=== PATIENT | male | born 1925 | race Caucasian/White ===

== ENCOUNTER 2016-11-19 16:24 | Inpatient (IN) | payer OTHER, BC ==
[~2016-11-19] VITALS: Ht 170.2 cm; Wt 79.6 kg
[~2016-11-19 16:24] MED LIST: ACET-1311 PO; ASPI-232 PO; ASTN; ATOR10TA88 PO; CALC500C3 PO; DPRCR15 EXT; FEXO1TAB46 PO; FLUT0.0529 NAE; LSX80 PO; MCRK20 PO; RANI150T3 PO; ZAFI10TA2 PO
[2016-11-19 18:30] VITALS: BP 107/64; PULSE 87; TEMP 36.4; O2SAT 97
[2016-11-19] MEDS ORDERED: ONDANSETRON INJ 2 MG/ML 2 ML VIAL IV PRN (19:30)
[2016-11-19] MEDS ORDERED: POTA20TA13 PO (19:31)
--- NOTE | 2016-11-19 19:54 | History and Physical ---
History & Physical Date & Time of Service: Nov 19, 2016 at 19:36 Chief Complaint: Increasing Lower Extremity Edema Primary Care Physician: Dr. Hardin History of Present Illness 89 year old male sent by Dr. Mills for direct admission for management of volume overload. Patient has history of nephrotic syndrome and CKD stage IV requiring intermittent admissions for IV Lasix with albumin for fluid removal. Patient reports increasing lower extremity edema and scrotal edema for the past few weeks. He notes a 9 pound weight gain last month. Last evening patient noted shortness of breath while laying down to sleep. He denies other shortness of breath, cough, or sputum production. No chest pain. Last week patient reports that while trying to get out of the bathtub, he missed the hand rail and suffered a fall. He fell onto his buttocks. He reports low back pain since then that has been improving with the use of Tylenol. He denies any radiation of the pain into his buttocks or legs. Denies any lower extremity weakness. No lightheadedness, dizziness, or loss of coconsciousness associated with the fall. He denies striking his head. Patient denies abdominal pain, nausea, vomiting, or diarrhea. No fever or chills. At the time of my exam, patient is resting seated in a chair next to his bed, no acute distress. Past Medical/Surgical History Medical Problems: (1) Chronic diastolic CHF (congestive heart failure) Permanent Comment: echo 01/2016 - Normal LV chamber size with moderate concentric LVH. Normal LV systolic function, EF 60-65%. No segmental left ventricular wall motion abnormalities are noted. Grade I diastolic dysfunction. Mild to moderate aortic regurgitation Status: Chronic (2) CKD (chronic kidney disease), stage IV Status: Chronic (3) GERD (gastroesophageal reflux disease) Status: Chronic (4) H/O prostate cancer Status: Chronic (5) H/O: CVA (cerebrovascular accident) Status: Chronic (6) HLD (hyperlipidemia) Status: Chronic (7) HTN (hypertension) Status: Chronic (8) Idiopathic pulmonary fibrosis Status: Chronic (9) Nephrotic syndrome Status: Chronic (10) S/P ORIF (open reduction internal fixation) fracture Permanent Comment: femur Status: Chronic Surgical Problems: (1) H/O hernia repair Status: Chronic (2) History of cataract surgery Status: Chronic (3) S/P T&A (status post tonsillectomy and adenoidectomy) Status: Chronic (4) S/P TURP Status: Chronic Family History Omit secondary to age Social History Smoking Status: Never Smoker Alcohol Use: none Housing status: assisted living Occupational Status: retired Immunizations History of Influenza Vaccine: Yes Influenza Vaccine Date: Sep 12, 2015 History of Pneumococcal: Yes Pneumococcal Date: Jan 19, 2013 Allergies Coded Allergies: Cat Dander (Verified Allergy, Mild, UNKNOWN, 06/14/15) Cephalexin (Verified Allergy, Mild, ASTHMATIC, 06/14/15) Pseudoephedrine (Verified Allergy, Mild, UNKNOWN, 06/14/15) Phenylpropanolamine (Verified Allergy, Unknown, ., 06/05/16) Home Medications Scheduled Aspirin (Aspir-81), 1 TAB PO DAILY Atorvastatin (Lipitor), 1 TAB PO DAILY Calcium Carbonate (Tums), 2,000 MG PO BID Fexofenadine Hcl (Pavithra), 180 MG PO DAILY Furosemide (Furosemide), 120 MG PO TID Potassium Chloride Microencaps (Potassium Chloride Er), 30 MEQ PO BID Ranitidine Hcl (Zantac), 1 TAB PO BID Zafirlukast (Zafirlukast), 10 MG PO BID Scheduled PRN Acetaminophen (Tylenol), 650 MG PO BID PRN for Pain or Fever Review of Systems 10 point review of systems was completed with the pertinent positives and negatives noted per the HPI Physical Exam Vital Signs Date Time Temp Pulse Resp B/P Pulse Ox O2 Delivery O2 Flow Rate FiO2 11/19/16 18:30 36.4 87 16 107/64 97 Room Air 11/19/16 18:30 97 Room Air General Appearance: no apparent distress Head: normocephalic Eyes: normal inspection ENT: hearing grossly normal Neck: supple, no JVD Respiratory/Chest: no respiratory distress, + crackles (BL bases) Cardiovascular: regular rate, rhythm, + pertinent finding (+3 pitting edema BLLE) Abdomen/GI: normal bowel sounds, non tender, soft Genitourinary - Male: + pertinent finding (scrotal edema) Back: + pertinent finding (mid lumbar pain with palpation) Extremities/Musculoskelatal: normal inspection, no calf tenderness Neurologic/Psych: no motor/sensory deficits, alert, normal mood/affect, oriented x 3 Skin: normal color, warm/dry Diagnostics Laboratory Results Results Past 24 Hours Test 11/19/16 19:25 Range/Units Impression Assessment and Plan VOLUME OVERLOAD IN THE SETTING OF NEPHROTIC SYNDROME AND CKD STAGE IV - admitted to med/surg - will obtain CBC and PRP - baseline creat runs in the low 1's - per nephrology will order Lasix 80mg IV TID with Albumin (patient is on Lasix 120mg PO TID at home) - continue home dose of potassium replacement however may need more due to aggressive diuresis - daily weights, I/Os, low Na+ and renal diet, fluid restriction as per home - nephro consult, input appreciated LOW BACK PAIN, MECHANICAL FALL - check lumbar spine XR - PT/OT HX CVA - continue ASA and statin GERD - continue H2 magali DVT PROPHYLAXIS - SQ Heparin CODE STATUS - Patient is a full code as per my discussion with him. DISPO - In my clinical judgment this beneficiary meets acute admission criteria, established by [facility], that includes being hospitalized through two midnights. ADDENDUM: This is a 89 year old male with PMH of nephrotic syndrome; sent over by Dr. Mills due to progressive worsening lower extremity edema. Also to note, he had a fall at the nursing facility with bruising on his lower back; states the pain is there with movement. PE: +3-4 pitting edema b/l LE up to upper thigh +bruising on lumbar area, with some muscle spasms Plan: as per nephro, IV Lasix 80mg TID with albumin I's and O's and fluid restriction Lumbar X-ray and Tylenol for the lower back pain VTE Prophylaxis VTE Risk Assessment Done? Y/N: Yes Risk Level: Moderate
[2016-11-19 20:39] LABS: HEMATOCRIT 32.4 % (42-52); MEAN CORPUSCULAR HEMOGLOBIN 29.8 pg (25-34); MEAN CORPUSCULAR HGB CONC 32.7 g/dl (32-36); MEAN PLATELET VOLUME 9.8 fL (7.4-10.4); PLATELET COUNT 179 K/uL (130-400); RED BLOOD COUNT 3.56 M/uL (4.7-6.1); WHITE BLOOD COUNT 8.35 K/uL (4.8-10.8)
[2016-11-19 20:49] LABS: PROTHROMBIN TIME (PATIENT) 10.9 SECONDS (9.0-12.0)
[2016-11-19 20:56] LABS: BLOOD UREA NITROGEN 54 mg/dl (7-18); BUN/CREATININE RATIO 22.6 (10-20); CALCIUM 8.2 mg/dl (8.5-10.1); CARBON DIOXIDE 32 mmol/L (21-32); CHLORIDE 102 mmol/L (98-107); GLUCOSE 113 mg/dl (70-99); MAGNESIUM 2.6 mg/dl (1.8-2.4); POTASSIUM 4.1 mmol/L (3.5-5.1); SODIUM 144 mmol/L (136-145)
[2016-11-19] MEDS: ZAFIRLUKAST TAB 20 MG TAB PO SCH (22:35)
[2016-11-19] MEDS: POTASSIUM CHLORIDE 20 MEQ TABCR PO SCH (22:36)
[2016-11-19] MEDS: CALCIUM CARBONATE 500 MG CHEWABLE PO SCH (22:36)
[2016-11-19] MEDS: RANITIDINE HCL 150 MG TAB PO SCH (22:36)
[2016-11-20] VITALS (10 sets, daily range): BP systolic 93–118; BP diastolic 55–76; PULSE 85–96; TEMP 36.5–36.9; O2SAT 95–100; Ht 170.2 cm; Wt 79.6 kg
[2016-11-20] MEDS: ALBUMIN 25% 50 ML with FUROSEMIDE INJ 80 MG IV SCH ×8 (00:17→19:32)
[2016-11-20] MEDS: HEPARIN SOD 5000 UNIT/0.5 ML CARP SQ SCH ×3 (01:19→20:31)
[2016-11-20] MEDS: ACETAMINOPHEN 325 MG TAB PO PRN ×5 (01:52→20:36)
[2016-11-20 06:13] LABS: HEMATOCRIT 32.5 % (42-52); MEAN CELL VOLUME 91.8 fL (80-100); MEAN CORPUSCULAR HEMOGLOBIN 30.5 pg (25-34); MEAN CORPUSCULAR HGB CONC 33.2 g/dl (32-36); MEAN PLATELET VOLUME 9.9 fL (7.4-10.4); PLATELET COUNT 182 K/uL (130-400); RED BLOOD COUNT 3.54 M/uL (4.7-6.1); WHITE BLOOD COUNT 10.22 K/uL (4.8-10.8)
[2016-11-20 06:45] LABS: BUN/CREATININE RATIO 22.6 (10-20); CALCIUM 8.3 mg/dl (8.5-10.1); CREATININE 2.3 mg/dl (0.60-1.40); POTASSIUM 3.7 mmol/L (3.5-5.1)
[2016-11-20] MEDS: ZAFIRLUKAST TAB 20 MG TAB PO SCH ×3 (07:42→20:39)
[2016-11-20] MEDS: POTASSIUM CHLORIDE 20 MEQ TABCR PO SCH ×3 (07:43→20:38)
[2016-11-20] MEDS ORDERED: ASPIRIN 81 MG ECTAB PO SCH (08:00)
[2016-11-20] MEDS ORDERED: ATORVASTATIN 10 MG TAB PO SCH (08:00)
[2016-11-20] MEDS ORDERED: FEXOFENADINE HCL 180 MG TAB PO SCH (08:00)
[2016-11-20] MEDS: CALCIUM CARBONATE 500 MG CHEWABLE PO SCH ×3 (08:05→20:37)
[2016-11-20] MEDS: RANITIDINE HCL 150 MG TAB PO SCH ×3 (08:05→20:37)
[2016-11-20] MEDS ORDERED: NURSING DECISION MEDICATION ORDER SCH (08:30)
--- NOTE | 2016-11-20 09:25 | NEPHROLOGY CONSULTATION ---
DATE OF CONSULTATION: 11/20/2016 ATTENDING OF RECORD: Dr. Berg. REASON FOR CONSULTATION: Low back pain and worsening edema. HISTORY OF PRESENT ILLNESS: This is an 89-year-old male with underlying nephrotic syndrome of unclear etiology, who has significant proteinuria, has CKD stage IV with baseline creatinine in the low 2s, who comes in periodically for Lasix and albumin to try to help improve edema. As an outpatient, when we added metolazone, the patient's potassium levels became quite low, requiring inpatient admission. The patient has had 3 falls over the past several months, the last fall being about a week ago. Since that last fall, the patient has had significant low back pain. The patient also has not been walking as well given his low back pain and lower extremity swelling and is slowing down and is getting majority of his food sent to him in his room instead of walking to the cafeteria. The patient currently resides in a half-way in [place]. 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 ROS: +fatigue, +edema in legs and scrotal swelling, +low back pain, +ambulatory dysfunction, no headaches, no chest pain, no sob, no rash, no itching, no anorexia, denies fevers or chills, no blurry vision. all other review of systems otherwise negative. PAST MEDICAL HISTORY: Diastolic heart failure, idiopathic pulmonary fibrosis with underlying basilar rales at baseline, hypertension, hyperlipidemia, history of stroke in the past, history of prostate cancer, CKD stage IV, nephrotic syndrome. PAST SURGICAL HISTORY: TURP, hernia repair, cataract surgery, tonsillectomy, femur fracture repair. FAMILY HISTORY: No renal disease in family. SOCIAL HISTORY: No smoking, no alcohol, no drugs. Currently resides in a half-way in [place] called [facility]. HOME MEDICATIONS: Significant for Lasix 120 mg p.o. t.i.d. as well as potassium 30 mEq p.o. b.i.d. CURRENT MEDICATIONS: Aspirin 81 mg daily, Lipitor 10 mg daily, Pavithra 180 mg daily, heparin 5000 units subcu q. 12, Lasix 80 IV t.i.d. with albumin, Tums 2 grams p.o. b.i.d., potassium 30 mEq p.o. b.i.d., Zantac 150 mg p.o. b.i.d., Accolate 10 mg p.o. b.i.d. PHYSICAL EXAMINATION: VITAL SIGNS: Temperature 36.8, pulse 91, respiratory rate 16, blood pressure 102/63, satting 95% on room air. GENERAL: Awake, alert, oriented x3. EYES: No scleral icterus. ENT: Moist mucous membranes. NECK: Supple. PULMONARY: Basilar rales. CARDIAC: Distant heart sounds, regular rate. ABDOMEN: Bowel sounds positive, soft, nontender. EXTREMITIES: +2 pitting edema lower extremities as well as scrotal edema. DERMATOLOGIC: No rash or ulcers noted. LABORATORY DATA: White count 10.22, H\T\H 10.8 and 32.5, platelet count 182. Sodium level is 145, potassium is 3.7, chloride is 104, bicarbonate is 31, BUN is 52, creatinine is 2.3, glucose is 97, calcium is 8.3, mag is 2.6. INR is 1. IMPRESSION AND PLAN: 1. Chronic kidney disease stage IV in the setting of nephrotic syndrome with blood pressures in the low 100s, trying to balance removing fluid with preserving kidney function and maintaining adequate blood pressure while following electrolytes closely. Currently on Lasix 80 mg IV t.i.d. with albumin. We will try to remove fluid while still preserving kidney function and continue to follow the electrolytes, currently on 30 mEq p.o. b.i.d. of potassium which may need to be adjusted. Magnesium levels have been chronically elevated in the 2.5-2.8 range despite not receiving any mag supplementation. Overall, poor prognosis given his constellation of findings, but hopefully we will be able to remove 5-10 pounds of fluid while still preserving kidney function and then discharge back to [facility] as a goal. 2. Low back pain. The patient did have a fall about a week ago, and since the fall, has had low back pain and currently going for films this morning. If we are able to control his pain better, that may improve his quality of life and help with mobility which is important in the preservation of his life. Hopefully, we can improve mobility by improving the leg swelling and controlling the pain of his lower extremities, although difficult and problematic given his chronically low blood pressures, worsening kidney function, advanced age with underlying idiopathic pulmonary fibrosis as well as diastolic heart failure. AKSHAT
--- NOTE | 2016-11-20 09:59 | DIAGNOSTIC IMAGING REPORT ---
LUMBAR SPINE 5 VIEWS HISTORY: fall, low back pain COMPARISON: None. FINDINGS: There is no fracture. No subluxation. Mild levoscoliosis. Degenerative changes within the sacroiliac joints and hips. Mild anterior wedging within the T12 vertebral body. Lumbar spine vertebral bodies are maintained. Mild to moderate disc space narrowing at L2-L3, L3-L4, L4-L5, and L5-S1. IMPRESSION: 1. No acute fracture or subluxation within the lumbar spine. 2. Mild anterior wedging within the T12 vertebral body. This likely represents an age-indeterminate mild compression deformity. 3. Moderate degenerative disc disease within the lumbar spine as described above. 4. Levoscoliosis. Electronically signed by: Michi Silverio M.D. 11/20/2016 9:57 AM
--- NOTE | 2016-11-20 10:03 | DIAGNOSTIC IMAGING REPORT ---
CHEST 2 VIEWS ROUTINE CLINICAL HISTORY: Volume overload. COMPARISON STUDY: Chest radiograph June 11, 2016. FINDINGS: There is no pneumothorax. Cardiac size is normal. There may be trace bilateral pleural effusions. Diffuse interstitial thickening persists. There may be lower lobe volume loss. This is chronic. No consolidation is identified. IMPRESSION: 1. Diffuse interstitial thickening suggestive of interstitial lung disease. Mild superimposed pulmonary edema would be difficult to exclude although there is no evidence for overt pulmonary edema. 2. Suspected trace bilateral pleural effusions. Electronically signed by: Russell Mondragon M.D. 11/20/2016 10:01 AM
[2016-11-20] MEDS: ASPIRIN 81 MG ECTAB PO SCH (12:22)
[2016-11-20] MEDS: ATORVASTATIN 10 MG TAB PO SCH (12:22)
[2016-11-20] MEDS: FEXOFENADINE HCL 180 MG TAB PO SCH (12:22)
--- NOTE | 2016-11-20 22:18 | Progress Note ---
Medicine Progress Note Date & Time of Visit: Nov 20, 2016 at 22:08. Subjective Pt was seen and examined lying in bed with no acute distress pt said that he is having a lot of pain in his lower back and the sacral area pt said that pain is worst when he tries to sit denies any chest pain, palpitation and sob Objective Last 8 Hrs Date Time Temp Pulse Resp B/P Pulse Ox O2 Delivery O2 Flow Rate FiO2 11/20/16 20:28 36.9 87 18 118/64 98 Room Air 11/20/16 19:36 36.8 89 18 99/62 97 Room Air 11/20/16 16:00 Room Air 11/20/16 15:57 36.8 94 18 110/68 100 Room Air 11/20/16 14:46 36.7 85 18 93/55 11/20/16 14:20 36.7 86 18 101/58 96 Physical Exam: General- No acute distress Head- atraumatic Eyes- PERRL, EOMI ENT- oropharynx clear Neck- supple, no JVD Lungs- clear to auscultation and percussion Heart- regular rhythm; no murmur Abdomen- normal bowel sounds, soft Extremities- +3 edema, no calf tenderness Neuro- alert, oriented x 3; PERRL, EOMI Laboratory Results: Last 24 Hours Test 11/20/16 05:26 White Blood Count 10.22 K/uL Red Blood Count 3.54 M/uL Hemoglobin 10.8 g/dL Hematocrit 32.5 % Mean Corpuscular Volume 91.8 fL Mean Corpuscular Hemoglobin 30.5 pg Mean Corpuscular Hemoglobin Concent 33.2 g/dl RDW Standard Deviation 49.8 fL RDW Coefficient of Variation 14.6 % Platelet Count 182 K/uL Mean Platelet Volume 9.9 fL Sodium Level 145 mmol/L Potassium Level 3.7 mmol/L Chloride Level 104 mmol/L Carbon Dioxide Level 31 mmol/L Anion Gap 10.0 mmol/L Blood Urea Nitrogen 52 mg/dl Creatinine 2.30 mg/dl Est Creatinine Clear Calc Drug Dose 22.5 ml/min Estimated GFR () 28.1 Estimated GFR (Non- 24.3 BUN/Creatinine Ratio 22.6 Random Glucose 97 mg/dl Calcium Level 8.3 mg/dl Assessment & Plan VOLUME OVERLOAD IN THE SETTING OF NEPHROTIC SYNDROME AND CKD STAGE IV - Continue Lasix 80mg IV TID - Will monitor electrolytes and creatine - daily weights, I/Os, low Na+ and renal diet, fluid restriction as per home LOW BACK PAIN, MECHANICAL FALL - lumbar spine XR showed no fracture. Moderate degenerative disc disease - Will start on a low dose of baclofen for muscle relaxant - continue tylenol for the pain, if not improved may consider to add tramadol - Continue PT/OT HX CVA - continue ASA and statin GERD - continue H2 magali DVT PROPHYLAXIS - SQ Heparin CODE STATUS - Full code Consultants: nephro Current Inpatient Medications: Current Inpatient Medications Medications (Trade) Dose Ordered Sig/Filiberto Route Start Time Stop Time Status Last Admin Dose Admin Acetaminophen (Tylenol Tab) 650 mg Q4H PRN PO 11/19/16 19:30 12/19/16 19:29 11/20/16 20:36 650 MG Ondansetron HCl (Zofran Inj) 4 mg Q6H PRN IV 11/19/16 19:30 12/19/16 19:29 Heparin Sodium (Porcine) 5000 unit 5,000 unit Q12 SQ 11/19/16 23:00 12/19/16 22:59 11/20/16 20:31 5,000 UNIT Furosemide/ Albumin Human (Lasix Inj/ Albumin 25%) 58 ml @ 60 mls/hr TID IV 11/19/16 20:00 11/22/16 19:59 11/20/16 19:32 60 MLS/HR Calcium Carbonate (Tums Chew Tab) 2,000 mg BID PO 11/19/16 20:00 12/19/16 19:59 11/20/16 20:37 2,000 MG Potassium Chloride (Klor-Con Tab) 30 meq BID PO 11/19/16 20:00 12/19/16 19:59 11/20/16 20:38 30 MEQ Ranitidine HCl (zANTac TAB) 150 mg BID PO 11/19/16 20:00 12/19/16 19:59 11/20/16 20:37 150 MG Zafirlukast (Accolate Tab) 10 mg BID PO 11/19/16 20:00 12/19/16 19:59 11/20/16 20:39 10 MG Aspirin (Ecotrin Tab) 81 mg 1200 PO 11/20/16 12:00 12/20/16 11:59 11/20/16 12:22 81 MG Atorvastatin Calcium (Lipitor Tab) 10 mg 1200 PO 11/20/16 12:00 12/20/16 11:59 11/20/16 12:22 10 MG Fexofenadine HCl (Pavithra Tab) 180 mg 1200 PO 11/20/16 12:00 12/20/16 11:59 11/20/16 12:22 180 MG Calcium Carbonate (Tums Chew Tab) 2,000 mg BIDM PO 11/20/16 17:00 12/20/16 16:59 11/20/16 16:00 2,000 MG Potassium Chloride (Klor-Con Tab) 30 meq BIDM PO 11/20/16 17:00 12/20/16 16:59 11/20/16 16:00 30 MEQ Ranitidine HCl (zANTac TAB) 150 mg BIDM PO 11/20/16 17:00 12/20/16 16:59 11/20/16 16:01 150 MG Zafirlukast (Accolate Tab) 10 mg BIDM PO 11/20/16 17:00 12/20/16 16:59 11/20/16 16:01 10 MG
[2016-11-20] MEDS: BACLOFEN 10 MG TAB PO ONE ×2 (22:21→23:52)
[2016-11-21] VITALS (9 sets, daily range): BP systolic 90–115; BP diastolic 58–68; PULSE 80–100; TEMP 36.3–36.6; O2SAT 96–98
[2016-11-21] MEDS: ACETAMINOPHEN 325 MG TAB PO PRN ×5 (00:09→20:46)
[2016-11-21 06:08] LABS: MEAN CELL VOLUME 91.7 fL (80-100); MEAN CORPUSCULAR HEMOGLOBIN 30.3 pg (25-34); MEAN PLATELET VOLUME 9.9 fL (7.4-10.4); PLATELET COUNT 178 K/uL (130-400); RED BLOOD COUNT 3.27 M/uL (4.7-6.1); WHITE BLOOD COUNT 7.66 K/uL (4.8-10.8)
[2016-11-21 06:50] LABS: BUN/CREATININE RATIO 22.6 (10-20); CALCIUM 8.3 mg/dl (8.5-10.1); CREATININE 2.1 mg/dl (0.60-1.40); MAGNESIUM 2.5 mg/dl (1.8-2.4); POTASSIUM 3.4 mmol/L (3.5-5.1)
[2016-11-21 06:51] LABS: PHOSPHORUS 3.1 mg/dl (2.5-4.9)
[2016-11-21] MEDS ORDERED: POTASSIUM CHLORIDE 20 MEQ TABCR PO ONE (07:45)
[2016-11-21] MEDS: POTASSIUM CHLORIDE 20 MEQ TABCR PO SCH ×3 (08:39→17:02)
[2016-11-21] MEDS: ZAFIRLUKAST TAB 20 MG TAB PO SCH ×3 (08:40→17:01)
[2016-11-21] MEDS: BACLOFEN 10 MG TAB PO SCH ×2 (08:41→20:46)
[2016-11-21] MEDS: CALCIUM CARBONATE 500 MG CHEWABLE PO SCH ×3 (08:41→17:03)
[2016-11-21] MEDS: RANITIDINE HCL 150 MG TAB PO SCH ×3 (08:41→17:02)
[2016-11-21] MEDS: ALBUMIN 25% 50 ML with FUROSEMIDE INJ 80 MG IV SCH ×6 (08:45→20:48)
[2016-11-21] MEDS: HEPARIN SOD 5000 UNIT/0.5 ML CARP SQ SCH ×2 (08:49→20:50)
[2016-11-21] MEDS: FEXOFENADINE HCL 180 MG TAB PO SCH (12:06)
[2016-11-21] MEDS: ATORVASTATIN 10 MG TAB PO SCH (12:06)
[2016-11-21] MEDS: ASPIRIN 81 MG ECTAB PO SCH (12:07)
--- NOTE | 2016-11-21 19:24 | Progress Note ---
Medicine Progress Note Date & Time of Visit: Nov 21, 2016 at 19:19. Subjective Pt was seen and examined Sitting in bed with no distress Pt said that he feel little better Pt said that he feels a little disappointed today because his weight did not drop Pt said that her sacral pain is better denies any chest pain, palpitation, dizziness and sob Objective Last 8 Hrs Date Time Temp Pulse Resp B/P Pulse Ox O2 Delivery O2 Flow Rate FiO2 11/21/16 16:42 98 Room Air 11/21/16 16:25 36.6 82 18 97/59 98 Room Air 11/21/16 15:16 36.6 82 18 95/59 11/21/16 14:55 36.3 82 18 90/58 Physical Exam: General- No acute distress Head- atraumatic Eyes- PERRL, EOMI ENT- oropharynx clear Neck- supple, no JVD Lungs- clear to auscultation and percussion Heart- regular rhythm; no murmur Abdomen- normal bowel sounds, soft Extremities- +3 edema, no calf tenderness Neuro- alert, oriented x 3; PERRL, EOMI Laboratory Results: Last 24 Hours Test 11/21/16 05:28 White Blood Count 7.66 K/uL Red Blood Count 3.27 M/uL Hemoglobin 9.9 g/dL Hematocrit 30.0 % Mean Corpuscular Volume 91.7 fL Mean Corpuscular Hemoglobin 30.3 pg Mean Corpuscular Hemoglobin Concent 33.0 g/dl RDW Standard Deviation 49.3 fL RDW Coefficient of Variation 14.6 % Platelet Count 178 K/uL Mean Platelet Volume 9.9 fL Sodium Level 145 mmol/L Potassium Level 3.4 mmol/L Chloride Level 104 mmol/L Carbon Dioxide Level 32 mmol/L Anion Gap 9.0 mmol/L Blood Urea Nitrogen 48 mg/dl Creatinine 2.10 mg/dl Est Creatinine Clear Calc Drug Dose 24.7 ml/min Estimated GFR () 31.4 Estimated GFR (Non- 27.1 BUN/Creatinine Ratio 22.6 Random Glucose 88 mg/dl Calcium Level 8.3 mg/dl Phosphorus Level 3.1 mg/dl Magnesium Level 2.5 mg/dl Assessment & Plan VOLUME OVERLOAD IN THE SETTING OF NEPHROTIC SYNDROME AND CKD STAGE IV - Continue Lasix 80mg IV TID - Will monitor electrolytes and creatine - Continue strict I/O LOW BACK PAIN, MECHANICAL FALL - lumbar spine XR showed no fracture. Moderate degenerative disc disease - continue tylenol for the pain, if not improved may consider to add tramadol - Continue PT/OT - baclofen low dose was started for muscle relaxant - Continue baclofen and can increase to 10mg HX CVA - continue ASA and statin GERD - continue H2 magali DVT PROPHYLAXIS - SQ Heparin CODE STATUS - Full code Consultants: nephro Current Inpatient Medications: Current Inpatient Medications Medications (Trade) Dose Ordered Sig/Filiberto Route Start Time Stop Time Status Last Admin Dose Admin Acetaminophen (Tylenol Tab) 650 mg Q4H PRN PO 11/19/16 19:30 12/19/16 19:29 11/21/16 17:00 650 MG Ondansetron HCl (Zofran Inj) 4 mg Q6H PRN IV 11/19/16 19:30 12/19/16 19:29 Heparin Sodium (Porcine) 5000 unit 5,000 unit Q12 SQ 11/19/16 23:00 12/19/16 22:59 11/21/16 08:49 5,000 UNIT Furosemide/ Albumin Human (Lasix Inj/ Albumin 25%) 58 ml @ 60 mls/hr TID IV 11/19/16 20:00 11/22/16 19:59 11/21/16 14:47 60 MLS/HR Aspirin (Ecotrin Tab) 81 mg 1200 PO 11/20/16 12:00 12/20/16 11:59 11/21/16 12:07 81 MG Atorvastatin Calcium (Lipitor Tab) 10 mg 1200 PO 11/20/16 12:00 12/20/16 11:59 11/21/16 12:06 10 MG Fexofenadine HCl (Pavithra Tab) 180 mg 1200 PO 11/20/16 12:00 12/20/16 11:59 11/21/16 12:06 180 MG Calcium Carbonate (Tums Chew Tab) 2,000 mg BIDM PO 11/20/16 17:00 12/20/16 16:59 11/21/16 17:03 2,000 MG Potassium Chloride (Klor-Con Tab) 30 meq BIDM PO 11/20/16 17:00 12/20/16 16:59 11/21/16 17:02 30 MEQ Ranitidine HCl (zANTac TAB) 150 mg BIDM PO 11/20/16 17:00 12/20/16 16:59 11/21/16 17:02 150 MG Zafirlukast (Accolate Tab) 10 mg BIDM PO 11/20/16 17:00 12/20/16 16:59 11/21/16 17:01 10 MG Baclofen (Lioresal Tab) 5 mg BID PO 11/21/16 08:00 12/21/16 07:59 11/21/16 08:41 5 MG
[2016-11-22] VITALS (8 sets, daily range): BP systolic 90–111; BP diastolic 56–71; PULSE 80–98; TEMP 36.1–36.6; O2SAT 94–97
[2016-11-22] MEDS: ACETAMINOPHEN 325 MG TAB PO PRN ×6 (01:54→22:52)
[2016-11-22 06:31] LABS: HEMATOCRIT 31.6 % (42-52); MEAN CELL VOLUME 90.8 fL (80-100); MEAN CORPUSCULAR HEMOGLOBIN 30.5 pg (25-34); MEAN CORPUSCULAR HGB CONC 33.5 g/dl (32-36); PLATELET COUNT 200 K/uL (130-400); RED BLOOD COUNT 3.48 M/uL (4.7-6.1); WHITE BLOOD COUNT 10.49 K/uL (4.8-10.8)
[2016-11-22 06:59] LABS: BUN/CREATININE RATIO 24.5 (10-20); CALCIUM 8.7 mg/dl (8.5-10.1); CREATININE 2.3 mg/dl (0.60-1.40); POTASSIUM 3.8 mmol/L (3.5-5.1)
--- NOTE | 2016-11-22 07:29 | Nephrology Progress Note ---
Nephrology Progress Note Date of Service: Nov 22, 2016. Subjective 89 yo male with worsening low back pain after a fall a week ago with underlying ckd stage 4 with nephrotic syndrome of unclear etiology who was being managed conservatively as an outpatient. on lasix 120mg po bid as outpt and now on albumin with 80 of lasix iv tid. pt feels he is diuresing nicely. continues to have back pain of 3/10. Objective Date Time Temp Pulse Resp B/P Pulse Ox O2 Delivery O2 Flow Rate FiO2 11/22/16 00:00 Room Air 11/21/16 21:08 36.6 80 16 97/59 98 Room Air 11/21/16 16:42 98 Room Air 11/21/16 16:25 36.6 82 18 97/59 98 Room Air 11/21/16 15:16 36.6 82 18 95/59 11/21/16 14:55 36.3 82 18 90/58 11/21/16 10:14 36.4 80 16 98/60 11/21/16 09:14 36.6 98 16 105/66 11/21/16 09:00 Room Air 11/21/16 08:46 36.3 100 20 115/68 96 Room Air Physical Exam: General-aaox3 Eyes-no scleral icterus ENT-mmm Neck-supple Lungs-basilar rales Heart-rrr Abdomen-bs+ s/nt/nd Extremities-+2 to 3 edema Neuro-nonfocal Current Inpatient Medications Medications (Trade) Dose Ordered Sig/Filiberto Route Start Time Stop Time Status Last Admin Dose Admin Acetaminophen (Tylenol Tab) 650 mg Q4H PRN PO 11/19/16 19:30 12/19/16 19:29 11/22/16 05:55 650 MG Ondansetron HCl (Zofran Inj) 4 mg Q6H PRN IV 11/19/16 19:30 12/19/16 19:29 Heparin Sodium (Porcine) 5000 unit 5,000 unit Q12 SQ 11/19/16 23:00 12/19/16 22:59 11/21/16 20:50 5,000 UNIT Furosemide/ Albumin Human (Lasix Inj/ Albumin 25%) 58 ml @ 60 mls/hr TID IV 11/19/16 20:00 11/22/16 19:59 11/21/16 20:48 60 MLS/HR Aspirin (Ecotrin Tab) 81 mg 1200 PO 11/20/16 12:00 12/20/16 11:59 11/21/16 12:07 81 MG Atorvastatin Calcium (Lipitor Tab) 10 mg 1200 PO 11/20/16 12:00 12/20/16 11:59 11/21/16 12:06 10 MG Fexofenadine HCl (Pavithra Tab) 180 mg 1200 PO 11/20/16 12:00 12/20/16 11:59 11/21/16 12:06 180 MG Calcium Carbonate (Tums Chew Tab) 2,000 mg BIDM PO 11/20/16 17:00 12/20/16 16:59 11/21/16 17:03 2,000 MG Potassium Chloride (Klor-Con Tab) 30 meq BIDM PO 11/20/16 17:00 12/20/16 16:59 11/21/16 17:02 30 MEQ Ranitidine HCl (zANTac TAB) 150 mg BIDM PO 11/20/16 17:00 12/20/16 16:59 11/21/16 17:02 150 MG Zafirlukast (Accolate Tab) 10 mg BIDM PO 11/20/16 17:00 12/20/16 16:59 11/21/16 17:01 10 MG Baclofen (Lioresal Tab) 5 mg BID PO 11/21/16 08:00 12/21/16 07:59 11/21/16 20:46 5 MG Last 24 Hours Test 11/22/16 06:00 White Blood Count 10.49 K/uL Red Blood Count 3.48 M/uL Hemoglobin 10.6 g/dL Hematocrit 31.6 % Mean Corpuscular Volume 90.8 fL Mean Corpuscular Hemoglobin 30.5 pg Mean Corpuscular Hemoglobin Concent 33.5 g/dl RDW Standard Deviation 48.5 fL RDW Coefficient of Variation 14.7 % Platelet Count 200 K/uL Mean Platelet Volume 10.0 fL Sodium Level 144 mmol/L Potassium Level 3.8 mmol/L Chloride Level 104 mmol/L Carbon Dioxide Level 32 mmol/L Anion Gap 8.0 mmol/L Blood Urea Nitrogen 56 mg/dl Creatinine 2.30 mg/dl Est Creatinine Clear Calc Drug Dose 22.5 ml/min Estimated GFR () 28.1 Estimated GFR (Non- 24.3 BUN/Creatinine Ratio 24.5 Random Glucose 90 mg/dl Calcium Level 8.7 mg/dl Assessment & Plan ckd stage 4 with baseline creatinine in the low 2s with significant nephrotic syndrome and third spacing of fluids who is on albumin and lasix to help try to preserve kidney function while mobilizing extra fluid. creatinine 2.3 which is stable. hypokalemia-k of 3.8 and on k supplement prn.
[2016-11-22] MEDS: BACLOFEN 10 MG TAB PO SCH ×2 (08:47→20:15)
[2016-11-22] MEDS: ALBUMIN 25% 50 ML with FUROSEMIDE INJ 80 MG IV SCH ×6 (08:47→20:15)
[2016-11-22] MEDS: POTASSIUM CHLORIDE 20 MEQ TABCR PO SCH ×2 (08:48→17:26)
[2016-11-22] MEDS: CALCIUM CARBONATE 500 MG CHEWABLE PO SCH ×2 (08:49→17:26)
[2016-11-22] MEDS: ZAFIRLUKAST TAB 20 MG TAB PO SCH ×2 (08:49→17:26)
[2016-11-22] MEDS: RANITIDINE HCL 150 MG TAB PO SCH ×2 (08:49→17:27)
[2016-11-22] MEDS: HEPARIN SOD 5000 UNIT/0.5 ML CARP SQ SCH ×2 (09:03→20:18)
[2016-11-22] MEDS: FEXOFENADINE HCL 180 MG TAB PO SCH (12:21)
[2016-11-22] MEDS: ASPIRIN 81 MG ECTAB PO SCH (12:21)
[2016-11-22] MEDS: ATORVASTATIN 10 MG TAB PO SCH (12:21)
[2016-11-22] MEDS ORDERED: ALBUMIN 25% 50 ML with FUROSEMIDE INJ 80 MG IV SCH ×4 (16:00→22:00)
--- NOTE | 2016-11-22 20:21 | Progress Note ---
Medicine Progress Note Date & Time of Visit: Nov 22, 2016 at 20:18. Subjective Pt was seen and examined Sitting in chair very comfortable watching the news denies any chest pain, palpitation, dizziness and sob he said the pain in his back is getting better slowly Objective Last 8 Hrs Date Time Temp Pulse Resp B/P Pulse Ox O2 Delivery O2 Flow Rate FiO2 11/22/16 16:09 Room Air 11/22/16 15:10 36.3 80 16 90/56 97 Room Air 11/22/16 14:30 36.6 90 16 111/71 Physical Exam: General- No acute distress Head- atraumatic Eyes- PERRL, EOMI ENT- oropharynx clear Neck- supple, no JVD Lungs- clear to auscultation and percussion Heart- regular rhythm; no murmur Abdomen- normal bowel sounds, soft Extremities- +3 edema, no calf tenderness Neuro- alert, oriented x 3; PERRL, EOMI Laboratory Results: Last 24 Hours Test 11/22/16 06:00 White Blood Count 10.49 K/uL Red Blood Count 3.48 M/uL Hemoglobin 10.6 g/dL Hematocrit 31.6 % Mean Corpuscular Volume 90.8 fL Mean Corpuscular Hemoglobin 30.5 pg Mean Corpuscular Hemoglobin Concent 33.5 g/dl RDW Standard Deviation 48.5 fL RDW Coefficient of Variation 14.7 % Platelet Count 200 K/uL Mean Platelet Volume 10.0 fL Sodium Level 144 mmol/L Potassium Level 3.8 mmol/L Chloride Level 104 mmol/L Carbon Dioxide Level 32 mmol/L Anion Gap 8.0 mmol/L Blood Urea Nitrogen 56 mg/dl Creatinine 2.30 mg/dl Est Creatinine Clear Calc Drug Dose 22.5 ml/min Estimated GFR () 28.1 Estimated GFR (Non- 24.3 BUN/Creatinine Ratio 24.5 Random Glucose 90 mg/dl Calcium Level 8.7 mg/dl Assessment & Plan 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 Moderate degenerative disc disease - continue tylenol for the pain, if not improved may consider to add tramadol - Continue PT/OT - baclofen low dose was started for muscle relaxant - Continue baclofen and can increase to 10mg if needed - improved HX CVA - continue ASA and statin GERD - continue H2 magali DVT PROPHYLAXIS - SQ Heparin CODE STATUS - Full code Consultants: nephro Current Inpatient Medications: Current Inpatient Medications Medications (Trade) Dose Ordered Sig/Filiberto Route Start Time Stop Time Status Last Admin Dose Admin Acetaminophen (Tylenol Tab) 650 mg Q4H PRN PO 11/19/16 19:30 12/19/16 19:29 11/22/16 18:23 650 MG Ondansetron HCl (Zofran Inj) 4 mg Q6H PRN IV 11/19/16 19:30 12/19/16 19:29 Heparin Sodium (Porcine) (Heparin Sq 5000 Unit/0.5ml) 5,000 unit Q12 SQ 11/19/16 23:00 12/19/16 22:59 11/22/16 09:03 5,000 UNIT Aspirin (Ecotrin Tab) 81 mg 1200 PO 11/20/16 12:00 12/20/16 11:59 11/22/16 12:21 81 MG Atorvastatin Calcium (Lipitor Tab) 10 mg 1200 PO 11/20/16 12:00 12/20/16 11:59 11/22/16 12:21 10 MG Fexofenadine HCl (Pavithra Tab) 180 mg 1200 PO 11/20/16 12:00 12/20/16 11:59 11/22/16 12:21 180 MG Calcium Carbonate (Tums Chew Tab) 2,000 mg BIDM PO 11/20/16 17:00 12/20/16 16:59 11/22/16 17:26 2,000 MG Potassium Chloride (Klor-Con Tab) 30 meq BIDM PO 11/20/16 17:00 12/20/16 16:59 11/22/16 17:26 30 MEQ Ranitidine HCl (zANTac TAB) 150 mg BIDM PO 11/20/16 17:00 12/20/16 16:59 11/22/16 17:27 150 MG Zafirlukast (Accolate Tab) 10 mg BIDM PO 11/20/16 17:00 12/20/16 16:59 11/22/16 17:26 10 MG Baclofen 5 mg 5 mg BID PO 11/21/16 08:00 12/21/16 07:59 11/22/16 08:47 5 MG Furosemide/ Albumin Human (Lasix Inj/ Albumin 25%) 58 ml @ 54 mls/hr TID IV 11/22/16 19:00 11/25/16 15:05
[2016-11-23] MEDS: ACETAMINOPHEN 325 MG TAB PO PRN (03:37)
[2016-11-23 07:43] VITALS: BP 149/84; PULSE 81; TEMP 36.5; O2SAT 95
[2016-11-23] MEDS: BACLOFEN 10 MG TAB PO SCH ×3 (09:05→20:38)
[2016-11-23] MEDS: CALCIUM CARBONATE 500 MG CHEWABLE PO SCH ×2 (09:06→16:46)
[2016-11-23] MEDS: POTASSIUM CHLORIDE 20 MEQ TABCR PO SCH ×2 (09:06→17:18)
[2016-11-23] MEDS: RANITIDINE HCL 150 MG TAB PO SCH ×2 (09:06→16:46)
[2016-11-23] MEDS: ZAFIRLUKAST TAB 20 MG TAB PO SCH ×2 (09:06→16:47)
[2016-11-23] MEDS: HEPARIN SOD 5000 UNIT/0.5 ML CARP SQ SCH ×2 (09:13→20:40)
[2016-11-23] MEDS: ALBUMIN 25% 50 ML with FUROSEMIDE INJ 80 MG IV SCH ×6 (09:15→20:51)
[2016-11-23 10:06] LABS: BUN/CREATININE RATIO 22.3 (10-20); CALCIUM 8.7 mg/dl (8.5-10.1); CREATININE 2.4 mg/dl (0.60-1.40); POTASSIUM 3.8 mmol/L (3.5-5.1)
[2016-11-23] MEDS ORDERED: ACETAMINOPHEN 500 MG TAB PO ONE (10:17)
[2016-11-23] MEDS: ACETAMINOPHEN 500 MG TAB PO PRN ×3 (10:19→20:36)
[2016-11-23] MEDS: ASPIRIN 81 MG ECTAB PO SCH (12:40)
[2016-11-23] MEDS: ATORVASTATIN 10 MG TAB PO SCH (12:40)
[2016-11-23] MEDS: FEXOFENADINE HCL 180 MG TAB PO SCH (12:40)
--- NOTE | 2016-11-23 14:36 | Progress Note ---
Medicine Progress Note Date & Time of Visit: Nov 23, 2016 at 14:21. Subjective Pt was seen and examined Pt sitting in chair comfortable with no distress Pt said that the Tylenol helps with the pain he has been asking for the Tylenol q4hr discussed with him that he is taking about 4g of Tylenol daily I informed him the Tylenol can damage his liver he denies any chest pain, palpitation, dizziness and SOB he is happy because the swelling improves from being diuresis. Objective Last 8 Hrs Date Time Temp Pulse Resp B/P Pulse Ox O2 Delivery O2 Flow Rate FiO2 11/23/16 08:40 Room Air 11/23/16 07:43 36.5 81 20 149/84 95 Room Air Physical Exam: General- No acute distress Head- atraumatic Eyes- PERRL, EOMI ENT- oropharynx clear Neck- supple, no JVD Lungs- clear to auscultation and percussion Heart- regular rhythm; no murmur Abdomen- normal bowel sounds, soft Extremities- +3 edema, no calf tenderness Neuro- alert, oriented x 3; PERRL, EOMI Laboratory Results: Last 24 Hours Test 11/23/16 09:24 Sodium Level 142 mmol/L Potassium Level 3.8 mmol/L Chloride Level 104 mmol/L Carbon Dioxide Level 31 mmol/L Anion Gap 7.0 mmol/L Blood Urea Nitrogen 54 mg/dl Creatinine 2.40 mg/dl Est Creatinine Clear Calc Drug Dose 21.7 ml/min Estimated GFR () 26.7 Estimated GFR (Non- 23.1 BUN/Creatinine Ratio 22.3 Random Glucose 117 mg/dl Calcium Level 8.7 mg/dl Assessment & Plan 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 Moderate degenerative disc disease - Tylenol was changed from 650mg to 500mg q4hr - Discussed with pt that the tylenol can danage his liver - Continue PT/OT - baclofen lwas changed to TID - improved HX CVA - continue ASA and statin GERD - continue H2 magali DVT PROPHYLAXIS - SQ Heparin CODE STATUS - Full code DISPOSITION possible discharge tomorrow Consultants: nephro Current Inpatient Medications: Current Inpatient Medications Medications (Trade) Dose Ordered Sig/Filiberto Route Start Time Stop Time Status Last Admin Dose Admin Ondansetron HCl (Zofran Inj) 4 mg Q6H PRN IV 11/19/16 19:30 12/19/16 19:29 Heparin Sodium (Porcine) (Heparin Sq 5000 Unit/0.5ml) 5,000 unit Q12 SQ 11/19/16 23:00 12/19/16 22:59 11/23/16 09:13 5,000 UNIT Aspirin (Ecotrin Tab) 81 mg 1200 PO 11/20/16 12:00 12/20/16 11:59 11/23/16 12:40 81 MG Atorvastatin Calcium (Lipitor Tab) 10 mg 1200 PO 11/20/16 12:00 12/20/16 11:59 11/23/16 12:40 10 MG Fexofenadine HCl (Pavithra Tab) 180 mg 1200 PO 11/20/16 12:00 12/20/16 11:59 11/23/16 12:40 180 MG Calcium Carbonate (Tums Chew Tab) 2,000 mg BIDM PO 11/20/16 17:00 12/20/16 16:59 11/23/16 09:06 2,000 MG Potassium Chloride (Klor-Con Tab) 30 meq BIDM PO 11/20/16 17:00 12/20/16 16:59 11/23/16 09:06 30 MEQ Ranitidine HCl (zANTac TAB) 150 mg BIDM PO 11/20/16 17:00 12/20/16 16:59 11/23/16 09:06 150 MG Zafirlukast 10 mg 10 mg BIDM PO 11/20/16 17:00 12/20/16 16:59 11/23/16 09:06 10 MG Furosemide/ Albumin Human (Lasix Inj/ Albumin 25%) 58 ml @ 54 mls/hr TID IV 11/22/16 19:00 11/25/16 15:05 11/23/16 14:17 54 MLS/HR Acetaminophen (Tylenol Tab) 500 mg Q4H PRN PO 11/23/16 11:30 12/23/16 11:29 11/23/16 10:19 500 MG Baclofen (Lioresal Tab) 5 mg TID PO 11/23/16 14:00 12/23/16 13:59 1/7/17 13:54 5 MG
[2016-11-23 15:02] VITALS: BP 94/58; PULSE 83; TEMP 36.2; O2SAT 96
[2016-11-23 16:00] VITALS: O2SAT 96
[2016-11-23 21:36] VITALS: BP 95/66; PULSE 88; TEMP 36.4; O2SAT 95
[2016-11-23 23:15] VITALS: BP 109/67; PULSE 90; TEMP 36.7; O2SAT 93
[2016-11-24] MEDS: ACETAMINOPHEN 500 MG TAB PO PRN ×6 (00:21→21:51)
[2016-11-24 06:34] LABS: CALCIUM 8.3 mg/dl (8.5-10.1); CREATININE 2.2 mg/dl (0.60-1.40); POTASSIUM 3.8 mmol/L (3.5-5.1)
[2016-11-24 07:57] VITALS: BP 95/55; PULSE 82; TEMP 36.2; O2SAT 93
[2016-11-24] MEDS: CALCIUM CARBONATE 500 MG CHEWABLE PO SCH ×2 (08:34→17:00)
[2016-11-24] MEDS: RANITIDINE HCL 150 MG TAB PO SCH ×2 (08:34→17:00)
[2016-11-24] MEDS: ZAFIRLUKAST TAB 20 MG TAB PO SCH ×2 (08:35→17:00)
[2016-11-24] MEDS: POTASSIUM CHLORIDE 20 MEQ TABCR PO SCH ×2 (08:35→17:00)
[2016-11-24] MEDS: BACLOFEN 10 MG TAB PO SCH ×2 (08:35→14:28)
[2016-11-24] MEDS: HEPARIN SOD 5000 UNIT/0.5 ML CARP SQ SCH ×2 (08:40→20:46)
[2016-11-24] MEDS: ALBUMIN 25% 50 ML with FUROSEMIDE INJ 80 MG IV SCH ×4 (08:42→14:28)
[2016-11-24] MEDS: FEXOFENADINE HCL 180 MG TAB PO SCH (12:30)
[2016-11-24] MEDS: ASPIRIN 81 MG ECTAB PO SCH (12:30)
[2016-11-24] MEDS: ATORVASTATIN 10 MG TAB PO SCH (12:30)
--- NOTE | 2016-11-24 13:06 | Progress Note ---
Medicine Progress Note Date & Time of Visit: Nov 24, 2016 at 13:00. Subjective Pt was seen and examined sitting in chair comfortable watching TV Pt said that he feels ok he said that the back pain he is better he is taking the Tylenol around the clock he said early today he had a mild shortness of breath Now his breathing is fine At this moment he denies any chest pain, palpitation, dizziness and sob Objective Last 8 Hrs Date Time Temp Pulse Resp B/P Pulse Ox O2 Delivery O2 Flow Rate FiO2 11/24/16 08:10 Room Air 11/24/16 07:57 36.2 82 16 95/55 93 Room Air Physical Exam: General- No acute distress Head- atraumatic Eyes- PERRL, EOMI ENT- oropharynx clear Neck- supple, no JVD Lungs- clear to auscultation and percussion Heart- regular rhythm; no murmur Abdomen- normal bowel sounds, soft Extremities- +edema, no calf tenderness Neuro- alert, oriented x 3; PERRL, EOMI Laboratory Results: Last 24 Hours Test 11/24/16 05:36 Sodium Level 146 mmol/L Potassium Level 3.8 mmol/L Chloride Level 106 mmol/L Carbon Dioxide Level 30 mmol/L Anion Gap 10.0 mmol/L Blood Urea Nitrogen 55 mg/dl Creatinine 2.20 mg/dl Est Creatinine Clear Calc Drug Dose 23.4 ml/min Estimated GFR () 29.7 Estimated GFR (Non- 25.6 BUN/Creatinine Ratio 25.0 Random Glucose 89 mg/dl Calcium Level 8.3 mg/dl Total Bilirubin 0.7 mg/dl Aspartate Amino Transf (AST/SGOT) 22 U/L Alanine Aminotransferase (ALT/SGPT) 14 U/L Alkaline Phosphatase 45 U/L Total Protein 4.9 gm/dl Albumin 2.4 gm/dl Globulin 2.5 gm/dl Albumin/Globulin Ratio 1.0 Assessment & Plan 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 Moderate degenerative disc disease - Tylenol was changed from 650mg to 500mg q4hr - Discussed with pt that the tylenol can danage his liver - Continue PT/OT - baclofen lwas changed to TID - improved HX CVA - continue ASA and statin GERD - continue H2 magali DVT PROPHYLAXIS - SQ Heparin CODE STATUS - Full code DISPOSITION possible discharge today if ok with the personal care where he stays at since there was a flu outbreak at the facility. Consultants: nephro Current Inpatient Medications: Current Inpatient Medications Medications (Trade) Dose Ordered Sig/Filiberto Route Start Time Stop Time Status Last Admin Dose Admin Ondansetron HCl (Zofran Inj) 4 mg Q6H PRN IV 11/19/16 19:30 12/19/16 19:29 Heparin Sodium (Porcine) (Heparin Sq 5000 Unit/0.5ml) 5,000 unit Q12 SQ 11/19/16 23:00 12/19/16 22:59 11/24/16 08:40 5,000 UNIT Aspirin (Ecotrin Tab) 81 mg 1200 PO 11/20/16 12:00 12/20/16 11:59 11/24/16 12:30 81 MG Atorvastatin Calcium (Lipitor Tab) 10 mg 1200 PO 11/20/16 12:00 12/20/16 11:59 11/24/16 12:30 10 MG Fexofenadine HCl (Pavithra Tab) 180 mg 1200 PO 11/20/16 12:00 12/20/16 11:59 11/24/16 12:30 180 MG Calcium Carbonate (Tums Chew Tab) 2,000 mg BIDM PO 11/20/16 17:00 12/20/16 16:59 11/24/16 08:34 2,000 MG Potassium Chloride (Klor-Con Tab) 30 meq BIDM PO 11/20/16 17:00 12/20/16 16:59 11/24/16 08:35 30 MEQ Ranitidine HCl (zANTac TAB) 150 mg BIDM PO 11/20/16 17:00 12/20/16 16:59 11/24/16 08:34 150 MG Zafirlukast 10 mg 10 mg BIDM PO 11/20/16 17:00 12/20/16 16:59 11/24/16 08:35 10 MG Furosemide/ Albumin Human (Lasix Inj/ Albumin 25%) 58 ml @ 54 mls/hr TID IV 11/22/16 19:00 11/25/16 15:05 11/24/16 08:42 54 MLS/HR Acetaminophen (Tylenol Tab) 500 mg Q4H PRN PO 11/23/16 11:30 12/23/16 11:29 11/24/16 12:33 500 MG Baclofen (Lioresal Tab) 5 mg TID PO 11/23/16 14:00 12/23/16 13:59 11/24/16 08:35 5 MG
[2016-11-24 15:05] VITALS: BP 106/67; PULSE 74; TEMP 36.4; O2SAT 98
--- NOTE | 2016-11-24 15:31 | Nephrology Progress Note ---
Nephrology Progress Note Date of Service: Nov 24, 2016. Subjective not dyspneic; ongoing low L back pain and new/more fatigue > has not yet ambulated today; feels edema less taut but not losing wt; denies voiding or presyncopal sx Objective Date Time Temp Pulse Resp B/P Pulse Ox O2 Delivery O2 Flow Rate FiO2 11/24/16 15:05 36.4 74 16 106/67 98 Room Air 11/24/16 08:10 Room Air 11/24/16 07:57 36.2 82 16 95/55 93 Room Air 11/24/16 01:09 Room Air 11/23/16 23:15 36.7 90 16 109/67 93 11/23/16 21:36 36.4 88 95/66 95 Room Air 11/23/16 20:00 Room Air 11/23/16 16:00 96 Room Air Physical Exam: General-aaox3, maenuevers readily for exam Eyes-no scleral icterus ENT-mmm Neck-supple Lungs-basilar crackles Heart-rrr Abdomen-bs+ s/nt/nd Extremities-+3 edema, BLE compression wraps Neuro-nonfocal Current Inpatient Medications Medications (Trade) Dose Ordered Sig/Filiberto Route Start Time Stop Time Status Last Admin Dose Admin Ondansetron HCl (Zofran Inj) 4 mg Q6H PRN IV 11/19/16 19:30 12/19/16 19:29 Heparin Sodium (Porcine) (Heparin Sq 5000 Unit/0.5ml) 5,000 unit Q12 SQ 11/19/16 23:00 12/19/16 22:59 11/24/16 08:40 5,000 UNIT Aspirin (Ecotrin Tab) 81 mg 1200 PO 11/20/16 12:00 12/20/16 11:59 11/24/16 12:30 81 MG Atorvastatin Calcium (Lipitor Tab) 10 mg 1200 PO 11/20/16 12:00 12/20/16 11:59 11/24/16 12:30 10 MG Fexofenadine HCl (Pavithra Tab) 180 mg 1200 PO 11/20/16 12:00 12/20/16 11:59 11/24/16 12:30 180 MG Calcium Carbonate (Tums Chew Tab) 2,000 mg BIDM PO 11/20/16 17:00 12/20/16 16:59 11/24/16 08:34 2,000 MG Potassium Chloride (Klor-Con Tab) 30 meq BIDM PO 11/20/16 17:00 12/20/16 16:59 11/24/16 08:35 30 MEQ Ranitidine HCl (zANTac TAB) 150 mg BIDM PO 11/20/16 17:00 12/20/16 16:59 11/24/16 08:34 150 MG Zafirlukast 10 mg 10 mg BIDM PO 11/20/16 17:00 12/20/16 16:59 11/24/16 08:35 10 MG Furosemide/ Albumin Human (Lasix Inj/ Albumin 25%) 58 ml @ 54 mls/hr TID IV 11/22/16 19:00 11/25/16 15:05 11/24/16 14:28 54 MLS/HR Acetaminophen (Tylenol Tab) 500 mg Q4H PRN PO 11/23/16 11:30 12/23/16 11:29 11/24/16 12:33 500 MG Baclofen (Lioresal Tab) 5 mg TID PO 11/23/16 14:00 12/23/16 13:59 11/24/16 14:28 5 MG Last 24 Hours Test 11/24/16 05:36 Sodium Level 146 mmol/L Potassium Level 3.8 mmol/L Chloride Level 106 mmol/L Carbon Dioxide Level 30 mmol/L Anion Gap 10.0 mmol/L Blood Urea Nitrogen 55 mg/dl Creatinine 2.20 mg/dl Est Creatinine Clear Calc Drug Dose 23.4 ml/min Estimated GFR () 29.7 Estimated GFR (Non- 25.6 BUN/Creatinine Ratio 25.0 Random Glucose 89 mg/dl Calcium Level 8.3 mg/dl Total Bilirubin 0.7 mg/dl Aspartate Amino Transf (AST/SGOT) 22 U/L Alanine Aminotransferase (ALT/SGPT) 14 U/L Alkaline Phosphatase 45 U/L Total Protein 4.9 gm/dl Albumin 2.4 gm/dl Globulin 2.5 gm/dl Albumin/Globulin Ratio 1.0 Assessment & Plan 89 yo male with worsening low back pain after a fall a week prior to admission with underlying ckd stage 4 with nephrotic syndrome of unclear etiology who was being managed conservatively as an outpatient. on lasix 120mg po tid as outpt and now on albumin with 80 of lasix iv tid. notes improved edema but wt slow to decrease; ongoing back pain and fatigue w/ MM relaxer ckd stage 4 with baseline creatinine in the low 2s with significant nephrotic syndrome and third spacing of fluids who is on albumin and lasix to help try to preserve kidney function while mobilizing extra fluid. creatinine at outpt baseline -will intensify diuresis with increase to lasix 100 mg tid iv w/ albumin and add 5 mg metolazone w/ last dose today and again in am -cont daily bmp -will make baclofen prn q12h d/t relative hypotension -cont 1.2L fluid restriction, low Na diet hypokalemia-k of 3.8/stable and on k supplement prn. care coordinated w/ dr ross
[2016-11-24] MEDS ORDERED: METOLAZONE 5 MG TAB PO ONE (19:30)
[2016-11-24] MEDS ORDERED: BACLOFEN 10 MG TAB PO PRN (20:00)
[2016-11-24] MEDS: FUROSEMIDE IV SCH ×2 (20:44)
[2016-11-24] MEDS: ALBUMIN 25% IV SCH ×2 (20:44)
[2016-11-24 20:57] VITALS: BP 105/64; PULSE 76
[2016-11-24 23:55] VITALS: BP 106/68; PULSE 82; TEMP 36.9; O2SAT 95
[2016-11-25] VITALS (8 sets, daily range): BP systolic 94–116; BP diastolic 55–86; PULSE 80–97; TEMP 36.1–36.5; O2SAT 93–98
[2016-11-25] MEDS: ACETAMINOPHEN 500 MG TAB PO PRN ×4 (03:02→16:49)
[2016-11-25 06:18] LABS: HEMATOCRIT 29.8 % (42-52); MEAN CORPUSCULAR HEMOGLOBIN 29.6 pg (25-34); MEAN CORPUSCULAR HGB CONC 32.2 g/dl (32-36); MEAN PLATELET VOLUME 10.2 fL (7.4-10.4); PLATELET COUNT 180 K/uL (130-400); RED BLOOD COUNT 3.24 M/uL (4.7-6.1)
[2016-11-25] MEDS ORDERED: METOLAZONE 5 MG TAB PO ONE (07:30)
--- NOTE | 2016-11-25 07:58 | Nephrology Progress Note ---
Nephrology Progress Note Date of Service: Nov 25, 2016. Subjective not dyspneic; marked diuresis w/ new meds; no comment about back pain today; denies voiding or presyncopal sx Objective Date Time Temp Pulse Resp B/P Pulse Ox O2 Delivery O2 Flow Rate FiO2 11/25/16 01:25 Room Air 11/24/16 23:55 36.9 82 20 106/68 95 Room Air 11/24/16 20:57 76 105/64 11/24/16 16:02 Room Air 11/24/16 15:05 36.4 74 16 106/67 98 Room Air 11/24/16 08:10 Room Air 11/24/16 07:57 36.2 82 16 95/55 93 Room Air Physical Exam: General-aaox3, maenuevers readily for exam, on RA Eyes-no scleral icterus ENT-mmm Neck-supple Lungs-basilar crackles Heart-rrr Abdomen-bs+ s/nt/nd Extremities-+2 edema, BLE compression wraps off Neuro-nonfocal Current Inpatient Medications Medications (Trade) Dose Ordered Sig/Filiberto Route Start Time Stop Time Status Last Admin Dose Admin Ondansetron HCl (Zofran Inj) 4 mg Q6H PRN IV 11/19/16 19:30 12/19/16 19:29 Heparin Sodium (Porcine) (Heparin Sq 5000 Unit/0.5ml) 5,000 unit Q12 SQ 11/19/16 23:00 12/19/16 22:59 11/24/16 20:46 5,000 UNIT Aspirin (Ecotrin Tab) 81 mg 1200 PO 11/20/16 12:00 12/20/16 11:59 11/24/16 12:30 81 MG Atorvastatin Calcium (Lipitor Tab) 10 mg 1200 PO 11/20/16 12:00 12/20/16 11:59 11/24/16 12:30 10 MG Fexofenadine HCl (Pavithra Tab) 180 mg 1200 PO 11/20/16 12:00 12/20/16 11:59 11/24/16 12:30 180 MG Calcium Carbonate (Tums Chew Tab) 2,000 mg BIDM PO 11/20/16 17:00 12/20/16 16:59 11/24/16 17:00 2,000 MG Potassium Chloride (Klor-Con Tab) 30 meq BIDM PO 11/20/16 17:00 12/20/16 16:59 11/24/16 17:00 30 MEQ Ranitidine HCl (zANTac TAB) 150 mg BIDM PO 11/20/16 17:00 12/20/16 16:59 11/24/16 17:00 150 MG Zafirlukast (Accolate Tab) 10 mg BIDM PO 11/20/16 17:00 12/20/16 16:59 11/24/16 17:00 10 MG Acetaminophen 500 mg 500 mg Q4H PRN PO 11/23/16 11:30 12/23/16 11:29 11/25/16 03:02 500 MG Furosemide/ Albumin Human (Lasix Inj/ Albumin 25%) 60 ml @ 54 mls/hr TID IV 11/24/16 20:00 11/25/16 14:01 11/24/16 20:44 54 MLS/HR Baclofen (Lioresal Tab) 5 mg BID PRN PO 11/24/16 20:00 12/24/16 19:59 11/25/16 00:25 5 MG Last 24 Hours Test 11/25/16 05:30 White Blood Count 7.00 K/uL Red Blood Count 3.24 M/uL Hemoglobin 9.6 g/dL Hematocrit 29.8 % Mean Corpuscular Volume 92.0 fL Mean Corpuscular Hemoglobin 29.6 pg Mean Corpuscular Hemoglobin Concent 32.2 g/dl RDW Standard Deviation 50.0 fL RDW Coefficient of Variation 14.7 % Platelet Count 180 K/uL Mean Platelet Volume 10.2 fL Assessment & Plan 89 yo male with worsening low back pain after a fall a week prior to admission with underlying ckd stage 4 with nephrotic syndrome of unclear etiology who was being managed conservatively as an outpatient. on lasix 120mg po tid as outpt and now on albumin with 80 of lasix iv tid. notes improved edema but wt slow to decrease; ongoing back pain and fatigue w/ MM relaxer ckd stage 4 with baseline creatinine in the low 2s with significant nephrotic syndrome and third spacing of fluids who is on albumin and lasix to help try to preserve kidney function while mobilizing extra fluid. creatinine at outpt baseline. he has signficant diuretic resistance. -on 11/25 intensified diuresis with increase to lasix 100 mg tid iv w/ albumin and added 5 mg metolazone -cont daily bmp -cont baclofen prn q12h d/t relative hypotension -cont 1.2L fluid restriction, low Na diet -admission wt 83.6 kg > now 81.8 this am; goal is 4-5 kg diuresis this admission > he is responding well to intensified diuretics started last evening w/ 1 kg off past 24 hrs, and up until yesterday only 1 kg off in 4 days; need to follow prp however from today hypokalemia-k had been stable and on k supplement prn >> f/u today's lab
[2016-11-25] MEDS: FUROSEMIDE IV SCH ×6 (08:43→20:16)
[2016-11-25] MEDS: ALBUMIN 25% IV SCH ×6 (08:43→20:16)
[2016-11-25] MEDS: POTASSIUM CHLORIDE 20 MEQ TABCR PO SCH ×2 (08:50→16:49)
[2016-11-25] MEDS: RANITIDINE HCL 150 MG TAB PO SCH ×2 (08:50→16:48)
[2016-11-25] MEDS: CALCIUM CARBONATE 500 MG CHEWABLE PO SCH ×2 (08:50→16:49)
[2016-11-25] MEDS: ZAFIRLUKAST TAB 20 MG TAB PO SCH ×2 (08:51→16:48)
[2016-11-25 08:55] LABS: BUN/CREATININE RATIO 22.6 (10-20); CALCIUM 8.9 mg/dl (8.5-10.1); CREATININE 2.4 mg/dl (0.60-1.40); POTASSIUM 3.5 mmol/L (3.5-5.1)
[2016-11-25] MEDS ORDERED: POTASSIUM CHLORIDE 20 MEQ TABCR PO ONE (09:30)
[2016-11-25] MEDS: HEPARIN SOD 5000 UNIT/0.5 ML CARP SQ SCH ×2 (10:33→20:45)
[2016-11-25] MEDS: ASPIRIN 81 MG ECTAB PO SCH (12:15)
[2016-11-25] MEDS: ATORVASTATIN 10 MG TAB PO SCH (12:15)
[2016-11-25] MEDS: FEXOFENADINE HCL 180 MG TAB PO SCH (12:15)
--- NOTE | 2016-11-25 12:51 | Progress Note ---
Medicine Progress Note Date & Time of Visit: Nov 25, 2016 at 12:34. Subjective Pt was seen and examined Sitting in chair comfortable Pt said that he feels fine Spoke to daughter over the phone that request pt not to be discharge yet She does not want patient to be discharge on metolazone. she said the last time he was on metolazone, he had severe hypokalemia. Also she does not want her to be discharge on any muscle relaxant. She requests to speak to nephrology Pt denies any chest pain, palpitation, dizziness and sob Objective Last 8 Hrs Date Time Temp Pulse Resp B/P Pulse Ox O2 Delivery O2 Flow Rate FiO2 11/25/16 09:50 100/86 11/25/16 08:49 97 113/66 11/25/16 08:30 Room Air 11/25/16 08:27 36.1 96 16 107/64 93 Room Air Physical Exam: General- No acute distress Head- atraumatic Eyes- PERRL, EOMI ENT- oropharynx clear Neck- supple, no JVD Lungs- clear to auscultation and percussion Heart- regular rhythm Abdomen- normal bowel sounds, soft Extremities- +2edema, no calf tenderness Neuro- alert, oriented x 3; PERRL, EOMI Laboratory Results: Last 24 Hours Test 11/25/16 05:30 White Blood Count 7.00 K/uL Red Blood Count 3.24 M/uL Hemoglobin 9.6 g/dL Hematocrit 29.8 % Mean Corpuscular Volume 92.0 fL Mean Corpuscular Hemoglobin 29.6 pg Mean Corpuscular Hemoglobin Concent 32.2 g/dl RDW Standard Deviation 50.0 fL RDW Coefficient of Variation 14.7 % Platelet Count 180 K/uL Mean Platelet Volume 10.2 fL Sodium Level 145 mmol/L Potassium Level 3.5 mmol/L Chloride Level 105 mmol/L Carbon Dioxide Level 30 mmol/L Anion Gap 10.0 mmol/L Blood Urea Nitrogen 54 mg/dl Creatinine 2.40 mg/dl Est Creatinine Clear Calc Drug Dose 21.4 ml/min Estimated GFR () 26.7 Estimated GFR (Non- 23.1 BUN/Creatinine Ratio 22.6 Random Glucose 88 mg/dl Calcium Level 8.9 mg/dl Assessment & Plan 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 Gonzalez made aware - Stable LOW BACK PAIN, MECHANICAL FALL - lumbar spine XR showed no fracture. Moderate degenerative disc disease - Tylenol was changed from 650mg to 500mg q4hr - Discussed with pt that the tylenol can danage his liver - Continue PT/OT - baclofen was decreased to BID yesterday and changed to daily now - Daughter requested not to discharge on baclofen - Continue Tylenol. - improved HX CVA - continue ASA and statin GERD - continue H2 magali DVT PROPHYLAXIS - SQ Heparin CODE STATUS - Full code DISPOSITION possible discharge once stable by nephrology Consultants: nephro Current Inpatient Medications: Current Inpatient Medications Medications (Trade) Dose Ordered Sig/Filiberto Route Start Time Stop Time Status Last Admin Dose Admin Ondansetron HCl (Zofran Inj) 4 mg Q6H PRN IV 11/19/16 19:30 12/19/16 19:29 Heparin Sodium (Porcine) (Heparin Sq 5000 Unit/0.5ml) 5,000 unit Q12 SQ 11/19/16 23:00 12/19/16 22:59 11/25/16 10:33 5,000 UNIT Aspirin (Ecotrin Tab) 81 mg 1200 PO 11/20/16 12:00 12/20/16 11:59 11/25/16 12:15 81 MG Atorvastatin Calcium (Lipitor Tab) 10 mg 1200 PO 11/20/16 12:00 12/20/16 11:59 11/25/16 12:15 10 MG Fexofenadine HCl (Pavithra Tab) 180 mg 1200 PO 11/20/16 12:00 12/20/16 11:59 11/25/16 12:15 180 MG Calcium Carbonate (Tums Chew Tab) 2,000 mg BIDM PO 11/20/16 17:00 12/20/16 16:59 11/25/16 08:50 2,000 MG Ranitidine HCl (zANTac TAB) 150 mg BIDM PO 11/20/16 17:00 12/20/16 16:59 11/25/16 08:50 150 MG Zafirlukast (Accolate Tab) 10 mg BIDM PO 11/20/16 17:00 12/20/16 16:59 11/25/16 08:51 10 MG Acetaminophen 500 mg 500 mg Q4H PRN PO 11/23/16 11:30 12/23/16 11:29 11/25/16 12:17 500 MG Furosemide/ Albumin Human (Lasix Inj/ Albumin 25%) 60 ml @ 54 mls/hr TID IV 11/24/16 20:00 11/25/16 14:01 11/25/16 08:43 54 MLS/HR Potassium Chloride (Klor-Con Tab) 40 meq BIDM PO 11/25/16 17:00 12/25/16 16:59 Baclofen (Lioresal Tab) 5 mg DAILY PRN PO 11/26/16 08:00 12/26/16 07:59 11/25/16 12:16 5 MG
[2016-11-26] MEDS: ACETAMINOPHEN 500 MG TAB PO PRN ×6 (00:31→23:35)
[2016-11-26 00:32] VITALS: BP 100/63; PULSE 82; TEMP 36.2; O2SAT 98
[2016-11-26 05:53] LABS: HEMATOCRIT 28.9 % (42-52); MEAN CELL VOLUME 91.7 fL (80-100); MEAN CORPUSCULAR HEMOGLOBIN 30.5 pg (25-34); MEAN CORPUSCULAR HGB CONC 33.2 g/dl (32-36); MEAN PLATELET VOLUME 9.7 fL (7.4-10.4); PLATELET COUNT 189 K/uL (130-400); RED BLOOD COUNT 3.15 M/uL (4.7-6.1)
[2016-11-26 06:22] LABS: BUN/CREATININE RATIO 21.6 (10-20); CALCIUM 8.9 mg/dl (8.5-10.1); CREATININE 2.7 mg/dl (0.60-1.40); POTASSIUM 3.5 mmol/L (3.5-5.1)
[2016-11-26 07:58] VITALS: BP 94/53; PULSE 79; TEMP 36.3; O2SAT 96
[2016-11-26] MEDS ORDERED: BACLOFEN 10 MG TAB PO PRN (08:00)
[2016-11-26] MEDS: RANITIDINE HCL 150 MG TAB PO SCH ×2 (09:01→17:23)
[2016-11-26] MEDS: CALCIUM CARBONATE 500 MG CHEWABLE PO SCH ×2 (09:01→17:24)
[2016-11-26] MEDS: ZAFIRLUKAST TAB 20 MG TAB PO SCH ×2 (09:02→17:24)
[2016-11-26] MEDS: POTASSIUM CHLORIDE 20 MEQ TABCR PO SCH ×2 (09:02→17:23)
[2016-11-26] MEDS: HEPARIN SOD 5000 UNIT/0.5 ML CARP SQ SCH ×2 (09:06→21:23)
[2016-11-26] MEDS: ALBUMIN 25% IV SCH ×4 (09:07→20:25)
[2016-11-26] MEDS: FUROSEMIDE IV SCH ×4 (09:07→20:25)
--- NOTE | 2016-11-26 10:35 | Nephrology Progress Note ---
Nephrology Progress Note Date of Service: Nov 26, 2016. Subjective not dyspneic; marked diuresis w/ new meds> down 3.4kg since admission; no comment about back pain today; denies voiding or presyncopal sx Objective Date Time Temp Pulse Resp B/P Pulse Ox O2 Delivery O2 Flow Rate FiO2 11/26/16 08:30 Room Air 11/26/16 07:58 36.3 79 20 94/53 96 Room Air 11/26/16 00:32 36.2 82 20 100/63 98 Room Air 11/26/16 00:00 Room Air 11/25/16 22:00 36.1 89 18 116/71 98 Room Air 11/25/16 20:45 36.5 83 16 101/61 96 Room Air 11/25/16 20:13 36.5 92 18 105/64 98 Room Air 11/25/16 20:00 Room Air 11/25/16 16:10 Room Air 11/25/16 15:11 36.3 83 16 95/58 98 Room Air 11/25/16 14:20 80 94/55 Physical Exam: General-aaox3, maenuevers readily for exam, on RA, some psychomotor slowing stable from prior exams overall more alert today Eyes-no scleral icterus ENT-mmm Neck-supple Lungs-diffuse stable posterior crackles Heart-rrr Abdomen-bs+ s/nt/nd Extremities-+2 edema, BLE compression wraps off Neuro-nonfocal Current Inpatient Medications Medications (Trade) Dose Ordered Sig/Filiberto Route Start Time Stop Time Status Last Admin Dose Admin Ondansetron HCl (Zofran Inj) 4 mg Q6H PRN IV 11/19/16 19:30 12/19/16 19:29 Heparin Sodium (Porcine) (Heparin Sq 5000 Unit/0.5ml) 5,000 unit Q12 SQ 11/19/16 23:00 12/19/16 22:59 11/26/16 09:06 5,000 UNIT Aspirin (Ecotrin Tab) 81 mg 1200 PO 11/20/16 12:00 12/20/16 11:59 11/25/16 12:15 81 MG Atorvastatin Calcium (Lipitor Tab) 10 mg 1200 PO 11/20/16 12:00 12/20/16 11:59 11/25/16 12:15 10 MG Fexofenadine HCl (Pavithra Tab) 180 mg 1200 PO 11/20/16 12:00 12/20/16 11:59 11/25/16 12:15 180 MG Calcium Carbonate (Tums Chew Tab) 2,000 mg BIDM PO 11/20/16 17:00 12/20/16 16:59 11/26/16 09:01 2,000 MG Ranitidine HCl (zANTac TAB) 150 mg BIDM PO 11/20/16 17:00 12/20/16 16:59 11/26/16 09:01 150 MG Zafirlukast (Accolate Tab) 10 mg BIDM PO 11/20/16 17:00 12/20/16 16:59 11/26/16 09:02 10 MG Acetaminophen (Tylenol Tab) 500 mg Q4H PRN PO 11/23/16 11:30 12/23/16 11:29 11/26/16 09:33 500 MG Potassium Chloride (Klor-Con Tab) 40 meq BIDM PO 11/25/16 17:00 12/25/16 16:59 11/26/16 09:02 40 MEQ Baclofen 5 mg 5 mg DAILY PRN PO 11/26/16 08:00 12/26/16 07:59 11/25/16 12:16 5 MG Furosemide/ Albumin Human (Lasix Inj/ Albumin 25%) 60 ml @ 60 mls/hr BID IV 11/26/16 20:00 12/26/16 19:59 Last 24 Hours Test 11/26/16 05:25 White Blood Count 7.10 K/uL Red Blood Count 3.15 M/uL Hemoglobin 9.6 g/dL Hematocrit 28.9 % Mean Corpuscular Volume 91.7 fL Mean Corpuscular Hemoglobin 30.5 pg Mean Corpuscular Hemoglobin Concent 33.2 g/dl RDW Standard Deviation 48.9 fL RDW Coefficient of Variation 14.7 % Platelet Count 189 K/uL Mean Platelet Volume 9.7 fL Sodium Level 143 mmol/L Potassium Level 3.5 mmol/L Chloride Level 102 mmol/L Carbon Dioxide Level 33 mmol/L Anion Gap 8.0 mmol/L Blood Urea Nitrogen 58 mg/dl Creatinine 2.70 mg/dl Est Creatinine Clear Calc Drug Dose 19.0 ml/min Estimated GFR () 23.2 Estimated GFR (Non- 20.0 BUN/Creatinine Ratio 21.6 Random Glucose 90 mg/dl Calcium Level 8.9 mg/dl Assessment & Plan 89 yo male with worsening low back pain after a fall a week prior to admission with underlying ckd stage 4 with nephrotic syndrome of unclear etiology who was being managed conservatively as an outpatient. on lasix 120mg po tid as outpt and now on albumin with 100 of lasix iv tid>lowered to 100 mg w/ albumin bid on 11/26. ckd stage 4 with baseline creatinine in the low 2s with significant nephrotic syndrome and third spacing of fluids who is on albumin and lasix to help try to preserve kidney function while mobilizing extra fluid. creatinine at outpt baseline. he has signficant diuretic resistance. accepting a degree of worsened renal function in order to improve volume status -on 11/25 intensified diuresis with increase to lasix 100 mg tid iv w/ albumin and added 5 mg metolazone >> had 2 doses metolazone and one full day of 100 mg tid; now metolazone on hold and lasix frequency / dose down to 100 bid -cont daily bmp -cont baclofen prn q12h d/t relative hypotension or stop -cont 1.2L fluid restriction, low Na diet -admission wt 83.6 kg > now 80.2 kg this am; goal is 4-5 kg diuresis this admission > he is responding well to intensified diuretics ; need to follow prp however from today -ideally should be on 24 hr stable po diuretic & K dose prior to d/c hypokalemia-k had been stable and on k supplement bid; added extra 40 mEq K x 1 today as well Appreciate c/s; will follow with you
[2016-11-26] MEDS ORDERED: POTASSIUM CHLORIDE 20 MEQ TABCR PO ONE (11:15)
[2016-11-26] MEDS: ATORVASTATIN 10 MG TAB PO SCH (12:59)
[2016-11-26] MEDS: ASPIRIN 81 MG ECTAB PO SCH (12:59)
[2016-11-26] MEDS: FEXOFENADINE HCL 180 MG TAB PO SCH (12:59)
[2016-11-26 15:43] VITALS: BP 95/58; PULSE 81; TEMP 36.9; O2SAT 98
--- NOTE | 2016-11-26 18:50 | Progress Note ---
Medicine Progress Note Date & Time of Visit: Nov 26, 2016 at 17:14. Subjective 89 yo M with nephrotic syndrome presented as a direct admission from Nephrology office volume overload He reprots having LE swelling for approximately 1 month with a gain of roughly 10 pounds. Denies SOB, CP or any other symptoms at this time. Since admission, he is net negative, down roughly 3.5kg since / Tolerating PO, mentating well Appears to be in good spirits Objective Last 8 Hrs Date Time Temp Pulse Resp B/P Pulse Ox O2 Delivery O2 Flow Rate FiO2 11/26/16 15:43 36.9 81 18 95/58 98 Room Air Physical Exam: GEN: WNWD, in no acute distress, alert and appropriate HEENT: NC/AT, normal sclerae CARDIO: reg rate, S1/2 heard without m/g/r LUNGS: CTA bilaterally, no crackles, rales or wheezes, good diaphragmatic excursion ABD: soft, non-tender, non-distended, no rebound or guarding (limited exam as patient is sitting up in chair) EXTREMITY: significant wrappings around lower extremities, puffy feet and could not assess pulses 2/2 heavy wrappings. 2+ pitting edema in thighs (did not examine but patient denies scrotal edema) NEURO: CN 2-12 grossly intact, no gross focal deficits MUSC: no gross focal deficits, moves all extremities equally, elderly, frail SKIN: warm and dry Laboratory Results: Last 24 Hours Test 11/26/16 05:25 White Blood Count 7.10 K/uL Red Blood Count 3.15 M/uL Hemoglobin 9.6 g/dL Hematocrit 28.9 % Mean Corpuscular Volume 91.7 fL Mean Corpuscular Hemoglobin 30.5 pg Mean Corpuscular Hemoglobin Concent 33.2 g/dl RDW Standard Deviation 48.9 fL RDW Coefficient of Variation 14.7 % Platelet Count 189 K/uL Mean Platelet Volume 9.7 fL Sodium Level 143 mmol/L Potassium Level 3.5 mmol/L Chloride Level 102 mmol/L Carbon Dioxide Level 33 mmol/L Anion Gap 8.0 mmol/L Blood Urea Nitrogen 58 mg/dl Creatinine 2.70 mg/dl Est Creatinine Clear Calc Drug Dose 19.0 ml/min Estimated GFR () 23.2 Estimated GFR (Non- 20.0 BUN/Creatinine Ratio 21.6 Random Glucose 90 mg/dl Calcium Level 8.9 mg/dl Assessment & Plan VOLUME OVERLOAD IN THE SETTING OF NEPHROTIC SYNDROME AND CKD STAGE IV - Continue Lasix/Albumin increased per Nephro with good resulting output - not on metolazone (daughter requests no metolazone as increase in K on this in the past) - cont daily BMP - Continue strict I/O - Down 3.5kg since admission on 11/20 - creatine slightly worse today 2.7, will monitor closely - Continue current management; Nephro to decide endpoint of diuresis LOW BACK PAIN, MECHANICAL FALL - L-spine xray on admission reveals no acute fracture or subluxation but did see mild anterior wedging within the T12 VB, likely representing an age- indeterminate mild compression deformity. Mod deg disc disease with was also seen with some mild scoliosis. - Cont scheduled Tylenol for now. - Per initial PT eval on admission 11/20, he was cleared to go back to his personal long-term. Nursing to ambulate him on the unit daily. - baclofen not required/given today - Daughter requested not to discharge on baclofen -appears improved and at baseline function. ANEMIA-poss 2/2 CKD as H/H appears to have worsened as real function worsened. Baseline 10/23/37 on 06/04/16. Will draw iron levels in am, however, to rule out iron deficiency. HX CVA - continue ASA and statin GERD - continue H2 magali DVT PROPHYLAXIS - SQ Heparin CODE STATUS - Full code DISPOSITION Consultants: nephro Current Inpatient Medications: Current Inpatient Medications Medications (Trade) Dose Ordered Sig/Filiberto Route Start Time Stop Time Status Last Admin Dose Admin Ondansetron HCl (Zofran Inj) 4 mg Q6H PRN IV 11/19/16 19:30 12/19/16 19:29 Heparin Sodium (Porcine) (Heparin Sq 5000 Unit/0.5ml) 5,000 unit Q12 SQ 11/19/16 23:00 12/19/16 22:59 11/26/16 09:06 5,000 UNIT Aspirin (Ecotrin Tab) 81 mg 1200 PO 11/20/16 12:00 12/20/16 11:59 11/26/16 12:59 81 MG Atorvastatin Calcium (Lipitor Tab) 10 mg 1200 PO 11/20/16 12:00 12/20/16 11:59 11/26/16 12:59 10 MG Fexofenadine HCl (Pavithar Tab) 180 mg 1200 PO 11/20/16 12:00 12/20/16 11:59 11/26/16 12:59 180 MG Calcium Carbonate (Tums Chew Tab) 2,000 mg BIDM PO 11/20/16 17:00 12/20/16 16:59 11/26/16 09:01 2,000 MG Ranitidine HCl (zANTac TAB) 150 mg BIDM PO 11/20/16 17:00 12/20/16 16:59 11/26/16 09:01 150 MG Zafirlukast (Accolate Tab) 10 mg BIDM PO 11/20/16 17:00 12/20/16 16:59 11/26/16 09:02 10 MG Acetaminophen (Tylenol Tab) 500 mg Q4H PRN PO 11/23/16 11:30 12/23/16 11:29 11/26/16 13:35 500 MG Potassium Chloride (Klor-Con Tab) 40 meq BIDM PO 11/25/16 17:00 12/25/16 16:59 11/26/16 09:02 40 MEQ Baclofen 5 mg 5 mg DAILY PRN PO 11/26/16 08:00 12/26/16 07:59 11/25/16 12:16 5 MG Furosemide/ Albumin Human (Lasix Inj/ Albumin 25%) 60 ml @ 60 mls/hr BID IV 11/26/16 20:00 12/26/16 19:59
[2016-11-26 20:25] VITALS: BP 101/56; PULSE 78
[2016-11-27] VITALS: BP 108/68; PULSE 86; TEMP 36.7; O2SAT 98
[2016-11-27] MEDS: ACETAMINOPHEN 500 MG TAB PO PRN ×5 (04:46→22:18)
[2016-11-27 06:16] LABS: HEMATOCRIT 29.4 % (42-52); MEAN CELL VOLUME 91.9 fL (80-100); MEAN CORPUSCULAR HEMOGLOBIN 30.6 pg (25-34); MEAN CORPUSCULAR HGB CONC 33.3 g/dl (32-36); MEAN PLATELET VOLUME 10.2 fL (7.4-10.4); PLATELET COUNT 196 K/uL (130-400); WHITE BLOOD COUNT 6.96 K/uL (4.8-10.8)
[2016-11-27 06:47] LABS: BUN/CREATININE RATIO 22.7 (10-20); CALCIUM 9.2 mg/dl (8.5-10.1); CREATININE 2.6 mg/dl (0.60-1.40); MAGNESIUM 2.5 mg/dl (1.8-2.4); POTASSIUM 3.7 mmol/L (3.5-5.1)
[2016-11-27 06:52] LABS: FERRITIN 191.9 ng/ml (8.0-388.0)
[2016-11-27 07:53] VITALS: BP 96/60; PULSE 86; TEMP 36.3; O2SAT 96
[2016-11-27] MEDS: ZAFIRLUKAST TAB 20 MG TAB PO SCH ×2 (08:50→18:22)
[2016-11-27] MEDS: POTASSIUM CHLORIDE 20 MEQ TABCR PO SCH ×2 (08:51→18:22)
[2016-11-27] MEDS: RANITIDINE HCL 150 MG TAB PO SCH ×2 (08:51→18:22)
[2016-11-27] MEDS: CALCIUM CARBONATE 500 MG CHEWABLE PO SCH ×2 (08:51→18:23)
[2016-11-27] MEDS: HEPARIN SOD 5000 UNIT/0.5 ML CARP SQ SCH ×2 (08:53→21:00)
[2016-11-27] MEDS: ALBUMIN 25% IV SCH ×2 (08:53)
[2016-11-27] MEDS: FUROSEMIDE IV SCH ×2 (08:53)
--- NOTE | 2016-11-27 10:27 | Nephrology Progress Note ---
Nephrology Progress Note Date of Service: Nov 27, 2016. Subjective not dyspneic; marked diuresis w/ new meds> 4kg since admission; no comment about back pain today and does not wish to continue mm relaxant; no voiding sx; did not ambulate yesterday d/t staffing issues/sleep per pt; no orthostatic sx per pt Objective Date Time Temp Pulse Resp B/P Pulse Ox O2 Delivery O2 Flow Rate FiO2 11/27/16 07:53 36.3 86 20 96/60 96 11/27/16 00:00 36.7 86 20 108/68 98 Room Air 11/27/16 00:00 Room Air 11/26/16 20:25 78 101/56 11/26/16 20:00 Room Air 11/26/16 17:36 Room Air 11/26/16 15:43 36.9 81 18 95/58 98 Room Air Physical Exam: General-aaox3, maenuevers readily for exam, on RA, some psychomotor slowing stable from prior exams overall Eyes-no scleral icterus ENT-mmm Neck-supple Lungs-diffuse posterior crackles Heart-rrr Abdomen-bs+ s/nt/nd Extremities-+2 edema, BLE compression wraps in place Neuro-nonfocal Current Inpatient Medications Medications (Trade) Dose Ordered Sig/Filiebrto Route Start Time Stop Time Status Last Admin Dose Admin Ondansetron HCl (Zofran Inj) 4 mg Q6H PRN IV 11/19/16 19:30 12/19/16 19:29 Heparin Sodium (Porcine) (Heparin Sq 5000 Unit/0.5ml) 5,000 unit Q12 SQ 11/19/16 23:00 12/19/16 22:59 11/27/16 08:53 5,000 UNIT Aspirin (Ecotrin Tab) 81 mg 1200 PO 11/20/16 12:00 12/20/16 11:59 11/26/16 12:59 81 MG Atorvastatin Calcium (Lipitor Tab) 10 mg 1200 PO 11/20/16 12:00 12/20/16 11:59 11/26/16 12:59 10 MG Fexofenadine HCl (Pavithra Tab) 180 mg 1200 PO 11/20/16 12:00 12/20/16 11:59 11/26/16 12:59 180 MG Calcium Carbonate (Tums Chew Tab) 2,000 mg BIDM PO 11/20/16 17:00 12/20/16 16:59 11/27/16 08:51 2,000 MG Ranitidine HCl (zANTac TAB) 150 mg BIDM PO 11/20/16 17:00 12/20/16 16:59 11/27/16 08:51 150 MG Zafirlukast (Accolate Tab) 10 mg BIDM PO 11/20/16 17:00 12/20/16 16:59 11/27/16 08:50 10 MG Acetaminophen (Tylenol Tab) 500 mg Q4H PRN PO 11/23/16 11:30 12/23/16 11:29 11/27/16 08:52 500 MG Potassium Chloride (Klor-Con Tab) 40 meq BIDM PO 11/25/16 17:00 12/25/16 16:59 11/27/16 08:51 40 MEQ Baclofen 5 mg 5 mg DAILY PRN PO 11/26/16 08:00 12/26/16 07:59 11/25/16 12:16 5 MG Furosemide/ Albumin Human (Lasix Inj/ Albumin 25%) 60 ml @ 60 mls/hr BID IV 11/26/16 20:00 12/26/16 19:59 11/27/16 08:53 60 MLS/HR Last 24 Hours Test 11/27/16 05:29 White Blood Count 6.96 K/uL Red Blood Count 3.20 M/uL Hemoglobin 9.8 g/dL Hematocrit 29.4 % Mean Corpuscular Volume 91.9 fL Mean Corpuscular Hemoglobin 30.6 pg Mean Corpuscular Hemoglobin Concent 33.3 g/dl RDW Standard Deviation 50.1 fL RDW Coefficient of Variation 15.0 % Platelet Count 196 K/uL Mean Platelet Volume 10.2 fL Sodium Level 143 mmol/L Potassium Level 3.7 mmol/L Chloride Level 102 mmol/L Carbon Dioxide Level 34 mmol/L Anion Gap 7.0 mmol/L Blood Urea Nitrogen 59 mg/dl Creatinine 2.60 mg/dl Est Creatinine Clear Calc Drug Dose 19.5 ml/min Estimated GFR () 24.3 Estimated GFR (Non- 20.9 BUN/Creatinine Ratio 22.7 Random Glucose 91 mg/dl Calcium Level 9.2 mg/dl Phosphorus Level 3.0 mg/dl Magnesium Level 2.5 mg/dl Iron Level 37 mcg/dl Total Iron Binding Capacity 173 mcg/dl Ferritin 191.9 ng/ml Albumin 2.8 gm/dl Assessment & Plan 89 yo male with low back pain after a fall a week prior to admission with underlying ckd stage 4 with nephrotic syndrome of unclear etiology (not a biopsy candidate) who was being managed conservatively as an outpatient. on lasix 120mg po tid as outpt and now on albumin with 100 of lasix iv tid>lowered to 100 mg w/ albumin bid on 11/26. ckd stage 4 with baseline creatinine in the low 2s with significant nephrotic syndrome and third spacing of fluids who is on albumin and lasix to help try to preserve kidney function while mobilizing extra fluid. creatinine at outpt baseline. he has signficant diuretic resistance. accepting a degree of worsened renal function in order to improve volume status -on 11/25 intensified diuresis with increase to lasix 100 mg tid iv w/ albumin and added 5 mg metolazone >> had 2 doses metolazone and one full day of 100 mg tid; now metolazone on hold and lasix frequency / dose down to 100 bid -cont daily bmp -cont 1.2L fluid restriction, low Na diet -admission wt 83.6 kg > now 79.7 kg this am; goal is 4-5 kg diuresis this admission > he is responding well to intensified diuretics but bmp worsened; will change to po now > 120 mg po lasix tid and 2.5 mg daily metolazone ; need to follow prp however from today -ideally should be on 24 hr stable po diuretic & K dose prior to d/c hypokalemia-k had been stable and on k supplement bid which should continue; had been needing extra doses but this may improve as we deescalate diuretics relative hypotension, recent fall -important to check orthostatic vs and to ambulate/monitor bp and sx while doing so on new diuretic regimen Appreciate c/s; will follow with you. care coordinated w/ dr sauceda
[2016-11-27 10:51] VITALS: BP_SYST 104; BP_SYST 105; BP_SYST 110; BP_DIAS 63; BP_DIAS 68; BP_DIAS 70; PULSE 79; PULSE 86; PULSE 92
[2016-11-27] MEDS: ASPIRIN 81 MG ECTAB PO SCH (13:14)
[2016-11-27] MEDS: FEXOFENADINE HCL 180 MG TAB PO SCH (13:14)
[2016-11-27] MEDS: FUROSEMIDE 40 MG TAB PO SCH ×2 (13:14→22:18)
[2016-11-27] MEDS: ATORVASTATIN 10 MG TAB PO SCH (13:14)
[2016-11-27 15:07] VITALS: BP_SYST 86; BP_SYST 94; BP_DIAS 50; BP_DIAS 56; PULSE 81; PULSE 83; TEMP 35.9; O2SAT 97
[2016-11-27 19:10] VITALS: BP 100/62; PULSE 84
--- NOTE | 2016-11-27 21:13 | Progress Note ---
Medicine Progress Note Date & Time of Visit: Nov 27, 2016 at 20:57. Subjective Pt reports walking around the hallways today Denies pain Tolerating PO No acute issues at this time. Objective Last 8 Hrs Date Time Temp Pulse Resp B/P Pulse Ox O2 Delivery O2 Flow Rate FiO2 11/27/16 19:10 84 100/62 11/27/16 15:07 35.9 81 20 86/50 97 Room Air 83 94/56 11/27/16 14:49 Room Air Physical Exam: GEN: WNWD, in no acute distress, alert and appropriate HEENT: NC/AT, normal sclerae CARDIO: reg rate, S1/2 heard without m/g/r LUNGS: CTA bilaterally, no crackles, rales or wheezes, good diaphragmatic excursion ABD: soft, non-tender, non-distended, no rebound or guarding, no edema EXTREMITY: significant wrappings around lower extremities, puffy feet and could not assess pulses 2/2 heavy wrappings. 1+ pitting edema in thighs NEURO: CN 2-12 grossly intact, no gross focal deficits MUSC: no gross focal deficits, moves all extremities equally, elderly, frail SKIN: warm and dry Laboratory Results: Last 24 Hours Test 11/27/16 05:29 White Blood Count 6.96 K/uL Red Blood Count 3.20 M/uL Hemoglobin 9.8 g/dL Hematocrit 29.4 % Mean Corpuscular Volume 91.9 fL Mean Corpuscular Hemoglobin 30.6 pg Mean Corpuscular Hemoglobin Concent 33.3 g/dl RDW Standard Deviation 50.1 fL RDW Coefficient of Variation 15.0 % Platelet Count 196 K/uL Mean Platelet Volume 10.2 fL Sodium Level 143 mmol/L Potassium Level 3.7 mmol/L Chloride Level 102 mmol/L Carbon Dioxide Level 34 mmol/L Anion Gap 7.0 mmol/L Blood Urea Nitrogen 59 mg/dl Creatinine 2.60 mg/dl Est Creatinine Clear Calc Drug Dose 19.5 ml/min Estimated GFR () 24.3 Estimated GFR (Non- 20.9 BUN/Creatinine Ratio 22.7 Random Glucose 91 mg/dl Calcium Level 9.2 mg/dl Phosphorus Level 3.0 mg/dl Magnesium Level 2.5 mg/dl Iron Level 37 mcg/dl Total Iron Binding Capacity 173 mcg/dl Ferritin 191.9 ng/ml Albumin 2.8 gm/dl Assessment & Plan VOLUME OVERLOAD IN THE SETTING OF NEPHROTIC SYNDROME AND CKD STAGE IV -Lasix/Albumin stopped as goal diuresis achieved per Nephro -Lasix switched to 120mg PO TID with daily metolazone 2.5mg PO daily -will ensure stability on this regimen over the next 24 hours prior to discharging home. -cont daily BMP -Continue strict I/O -Down approx 4kg since admission on 11/20 -creatine slightly worse but improved from 2.7 to 2.6 today -need to orchestrate outpatient follow-up with Dr. Mills's office with a recheck of electrolytes prior to that appointment with a weight trend to report at that time, also. HYPOTENSION-Orthostatics were checked today and were not positive. Pt appears euvolemic despite recent diuresis efforts. Is asymptomatic and was able to walk around the hallways with his walker as well as perform multiple ADLs with the Occupational Therapist today. This BP appears to be his baseline as his range has not changed since prior admission in April 2016. LOW BACK PAIN, MECHANICAL FALL - L-spine xray on admission reveals no acute fracture or subluxation but did see mild anterior wedging within the T12 VB, likely representing an age- indeterminate mild compression deformity. Mod deg disc disease with was also seen with some mild scoliosis. - Cont scheduled Tylenol for now. - Per initial PT eval on admission 11/20, he was cleared to go back to his personal retirement. Nursing to ambulate him on the unit daily. - baclofen not required/given today - Daughter requested not to discharge on baclofen -appears improved and at baseline function. ANEMIA-poss 2/2 CKD as H/H appears to have worsened as renal function worsened. Baseline 10/23/37 on 06/04/16. No iron deficiency on am labs. Possibly dilutional ? from chronic inflammation? Frequent phlebotomy? Appreciate Nephrology assistance with this issue. No need for transfusion at this time. HX CVA - continue ASA and statin GERD - continue H2 magali DVT PROPHYLAXIS - SQ Heparin CODE STATUS - Full code DISPOSITION-likely to [facility] in am. DO [facility] Hospital[facility] Consultants: nephro Current Inpatient Medications: Current Inpatient Medications Medications (Trade) Dose Ordered Sig/Filiberto Route Start Time Stop Time Status Last Admin Dose Admin Ondansetron HCl (Zofran Inj) 4 mg Q6H PRN IV 11/19/16 19:30 12/19/16 19:29 Heparin Sodium (Porcine) (Heparin Sq 5000 Unit/0.5ml) 5,000 unit Q12 SQ 11/19/16 23:00 12/19/16 22:59 11/27/16 08:53 5,000 UNIT Aspirin (Ecotrin Tab) 81 mg 1200 PO 11/20/16 12:00 12/20/16 11:59 11/27/16 13:14 81 MG Atorvastatin Calcium (Lipitor Tab) 10 mg 1200 PO 11/20/16 12:00 12/20/16 11:59 11/27/16 13:14 10 MG Fexofenadine HCl (Pavithra Tab) 180 mg 1200 PO 11/20/16 12:00 12/20/16 11:59 11/27/16 13:14 180 MG Calcium Carbonate (Tums Chew Tab) 2,000 mg BIDM PO 11/20/16 17:00 12/20/16 16:59 11/27/16 18:23 2,000 MG Ranitidine HCl (zANTac TAB) 150 mg BIDM PO 11/20/16 17:00 12/20/16 16:59 11/27/16 18:22 150 MG Zafirlukast (Accolate Tab) 10 mg BIDM PO 11/20/16 17:00 12/20/16 16:59 11/27/16 18:22 10 MG Acetaminophen (Tylenol Tab) 500 mg Q4H PRN PO 11/23/16 11:30 12/23/16 11:29 11/27/16 18:26 500 MG Potassium Chloride (Klor-Con Tab) 40 meq BIDM PO 11/25/16 17:00 12/25/16 16:59 11/27/16 18:22 40 MEQ Baclofen (Lioresal Tab) 5 mg DAILY PRN PO 11/26/16 08:00 12/26/16 07:59 11/25/16 12:16 5 MG Furosemide (Lasix tab) 120 mg TID PO 11/27/16 14:00 12/27/16 13:59 11/27/16 13:14 120 MG Metolazone (Zaroxolyn Tab) 2.5 mg QAM PO 11/28/16 08:00 12/28/16 07:59
[2016-11-27 23:53] VITALS: BP 94/56; PULSE 82; TEMP 36.6; O2SAT 95
[2016-11-28] MEDS: ACETAMINOPHEN 500 MG TAB PO PRN ×3 (02:42→11:33)
[2016-11-28 07:14] LABS: HEMATOCRIT 27.4 % (42-52); MEAN CELL VOLUME 92.6 fL (80-100); MEAN CORPUSCULAR HEMOGLOBIN 30.7 pg (25-34); MEAN CORPUSCULAR HGB CONC 33.2 g/dl (32-36); MEAN PLATELET VOLUME 10.5 fL (7.4-10.4); PLATELET COUNT 187 K/uL (130-400); RED BLOOD COUNT 2.96 M/uL (4.7-6.1); WHITE BLOOD COUNT 7.28 K/uL (4.8-10.8)
[2016-11-28] MEDS: ZAFIRLUKAST TAB 20 MG TAB PO SCH (07:31)
[2016-11-28] MEDS: RANITIDINE HCL 150 MG TAB PO SCH (07:31)
[2016-11-28] MEDS: POTASSIUM CHLORIDE 20 MEQ TABCR PO SCH (07:31)
[2016-11-28] MEDS: CALCIUM CARBONATE 500 MG CHEWABLE PO SCH (07:32)
[2016-11-28] MEDS: FUROSEMIDE 40 MG TAB PO SCH ×2 (07:32→13:28)
[2016-11-28] MEDS: HEPARIN SOD 5000 UNIT/0.5 ML CARP SQ SCH (07:37)
[2016-11-28 07:42] LABS: BUN/CREATININE RATIO 24.2 (10-20); CALCIUM 9.3 mg/dl (8.5-10.1); CREATININE 2.7 mg/dl (0.60-1.40); MAGNESIUM 2.6 mg/dl (1.8-2.4); POTASSIUM 3.9 mmol/L (3.5-5.1)
[2016-11-28 07:43] LABS: PHOSPHORUS 3.3 mg/dl (2.5-4.9)
[2016-11-28 07:44] VITALS: BP 124/75; PULSE 99; TEMP 36.3; O2SAT 95
[2016-11-28] MEDS ORDERED: METOLAZONE 2.5 MG TAB PO SCH (08:00)
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
[2016-11-28] MEDS: FEXOFENADINE HCL 180 MG TAB PO SCH (11:33)
[2016-11-28] MEDS: ASPIRIN 81 MG ECTAB PO SCH (11:33)
[2016-11-28] MEDS: ATORVASTATIN 10 MG TAB PO SCH (11:33)
[2016-11-28] MEDS ORDERED: MCRK20 PO ×2 (14:02→14:25)
[2016-11-28] MEDS ORDERED: ZRX25 PO (14:02)
--- NOTE | 2016-11-28 14:09 | Discharge Instructions ---
Discharge Instructions Admission Reason for Admission: EDEMA Discharge Discharge Diagnosis / Problem: Nephrotic syndrome Discharge Goals Goal(s): Prevent Disease Progression Activity Recommendations Activity Limitations: resume your previous activity . Instructions / Follow-Up Instructions / Follow-Up Please take all medications as instructed and note some changes to your regimen. Continue with daily standing weights, keep a log and bring to medical appointments. Continue with 1.2L fluid restriction daily. Continue with 2 gram sodium restriction daily. You will need to have labs drawn by the staff at the [facility] next 12/04. This should include a CBC, BASIC METABOLIC PANEL w MAGNESIUM. Please fax results to DR LARRY MILLS at fax number on file. Weekly labwork will be continued by Dr. Mills's office, who will also be contacting you on Friday to schedule a follow-up appointment from this hospitalization. I also recommend a follow-up by your primary care physician within the next week to ensure things are not getting worse after discharge. It was a pleasure taking care of you! Call if you have any questions or problems. You can reach a [facility] hospitalist on duty at [facility] 24 hours a day by calling [phone]. Take care of yourself. Rashmi Bob DO [facility] Diet Patient's current hospital diet: Low Sodium Diet (2gm Na), Renal Diet Discharge Diet Recommended Diet: Low Sodium Diet (2gm Na), Renal Diet Procedures Procedures Performed: None. Pending Studies Studies pending at discharge: no Medical Emergencies . Who to Call and When: Medical Emergencies: If at any time you feel your situation is an emergency, please call 911 immediately. . Non-Emergent Contact Non-Emergency issues call your: Primary Care Provider, [facility] . . "Provider Documentation" section prepared by Rashmi Bob. VTE Core Measure Inpt VTE Proph given/why not?: Unfractionated heparin SQ
[2016-11-28 14:41] VITALS: BP 124/75; PULSE 99; TEMP 36.3; O2SAT 95
--- NOTE | 2016-12-03 21:21 | Discharge Summary ---
Discharge Summary Admission Date: Nov 19, 2016 at 19:24 Discharge Date: Nov 28, 2016 Discharge Disposition: Personal care Principal Diagnosis: Nephrotic Syndrome CKD-Stage IV Hypotension Lower back pain Ambulatory Dysfunction 2/2 mechanical fall Anemia h/o CVA GERD Consultations: nephro Medication Reconciliation New Medications: Potassium Chloride (Klor-Con M20) 20 Meq Tabcr 40 MEQ PO BID for 30 Days, #120 TAB Metolazone (Metolazone) 2.5 Mg Tab 2.5 MG PO DAILY for 30 Days, #30 TAB Continued Medications: Acetaminophen (Tylenol) 325 Mg Tab 650 MG PO BID PRN for Pain or Fever, TAB Aspirin (Aspir-81) 81 Mg Tab 1 TAB PO DAILY for 90 Days, #90 TAB 1 Refill Atorvastatin (Lipitor) 10 Mg Tab 1 TAB PO DAILY for 30 Days, #30 TAB 5 Refills Calcium Carbonate (Tums) 500 Mg Chew 2000 MG PO BID for 30 Days Fexofenadine Hcl (Pavithra) 180 Mg Tab 180 MG PO DAILY, TAB Furosemide (Furosemide) 80 Mg Tab 120 MG PO TID for 30 Days Please dose at 07:00, 12:00, 17:00. Ranitidine Hcl (Zantac) 150 Mg Tab 1 TAB PO BID for 90 Days, #180 TAB 3 Refills Zafirlukast (Zafirlukast) 10 Mg Tab 10 MG PO BID Discontinued Medications: Potassium Chloride Microencaps (Potassium Chloride Er) 20 Meq Tab 30 MEQ PO BID for 90 Days, #180 TAB 3 Refills Admission Information HPI (per Admitting provider): 89 year old male sent by Dr. Mills for direct admission for management of volume overload. Patient has history of nephrotic syndrome and CKD stage IV requiring intermittent admissions for IV Lasix with albumin for fluid removal. Patient reports increasing lower extremity edema and scrotal edema for the past few weeks. He notes a 9 pound weight gain last month. Last evening patient noted shortness of breath while laying down to sleep. He denies other shortness of breath, cough, or sputum production. No chest pain. Last week patient reports that while trying to get out of the bathtub, he missed the hand rail and suffered a fall. He fell onto his buttocks. He reports low back pain since then that has been improving with the use of Tylenol. He denies any radiation of the pain into his buttocks or legs. Denies any lower extremity weakness. No lightheadedness, dizziness, or loss of coconsciousness associated with the fall. He denies striking his head. Patient denies abdominal pain, nausea, vomiting, or diarrhea. No fever or chills. At the time of my exam, patient is resting seated in a chair next to his bed, no acute distress. Physical Exam (per Admitting): General Appearance: no apparent distress Head: normocephalic Eyes: normal inspection ENT: hearing grossly normal Neck: supple, no JVD Respiratory/Chest: no respiratory distress, + crackles (BL bases) Cardiovascular: regular rate, rhythm, + pertinent finding (+3 pitting edema BLLE) Abdomen/GI: normal bowel sounds, non tender, soft Genitourinary - Male: + pertinent finding (scrotal edema) Back: + pertinent finding (mid lumbar pain with palpation) Extremities/Musculoskelatal: normal inspection, no calf tenderness Neurologic/Psych: no motor/sensory deficits, alert, normal mood/affect, oriented x 3 Skin: normal color, warm/dry Hospital Course VOLUME OVERLOAD IN THE SETTING OF NEPHROTIC SYNDROME AND CKD STAGE IV -Lasix/Albumin stopped as goal diuresis achieved per Nephro -Lasix switched to 120mg PO TID with daily metolazone 2.5mg PO daily -ensured stability on this regimen over the next 24 hours prior to discharging home. -cont daily BMP -Continue strict I/O -Down approx 4kg since admission on 11/20 -creatine slightly worse but improved from 2.7 to 2.6 today -need to orchestrate outpatient follow-up with Dr. Mills's office with a recheck of electrolytes prior to that appointment with a weight trend to report at that time, also. HYPOTENSION-Orthostatics were checked today and were not positive. Pt appears euvolemic despite recent diuresis efforts. Is asymptomatic and was able to walk around the hallways with his walker as well as perform multiple ADLs with the Occupational Therapist today. This BP appears to be his baseline as his range has not changed since prior admission in April 2016. LOW BACK PAIN, MECHANICAL FALL - L-spine xray on admission reveals no acute fracture or subluxation but did see mild anterior wedging within the T12 VB, likely representing an age- indeterminate mild compression deformity. Mod deg disc disease with was also seen with some mild scoliosis. - Cont scheduled Tylenol for now. - Per initial PT eval on admission 11/20, he was cleared [facility]. Nursing to ambulate him on the unit daily and performed at baseline. - baclofen not required/given - Daughter requested not to discharge on baclofen -appears improved and at baseline function. ANEMIA-poss 2/2 CKD as H/H appears to have worsened as renal function worsened. Baseline 10/23/37 on 06/04/16. No iron deficiency on am labs. Possibly dilutional ? from chronic inflammation? Frequent phlebotomy? Nephrology to follow as outpatient. No need for transfusion at this time. HX CVA - continue ASA and statin GERD - continue H2 magali DISPOSITION-likely to [facility] Total time spent on discharge = 60 minutes This includes examination of the patient, discharge planning, medication reconciliation, and communication with other providers. Discharge Instructions Discharge Instructions Admission Reason for Admission: EDEMA Discharge Discharge Diagnosis / Problem: Nephrotic syndrome Discharge Goals Goal(s): Prevent Disease Progression Activity Recommendations Activity Limitations: resume your previous activity . Instructions / Follow-Up Instructions / Follow-Up Please take all medications as instructed and note some changes to your regimen. Continue with daily standing weights, keep a log and bring to medical appointments. Continue with 1.2L fluid restriction daily. Continue with 2 gram sodium restriction daily. You will need to have labs drawn by the staff at the [facility] next Fri , 12/04. This should include a CBC, BASIC METABOLIC PANEL w MAGNESIUM. Please fax results to DR SALBADOR MILLS at fax number on file. Weekly labwork will be continued by Dr. Mills's office, who will also be contacting you on Friday to schedule a follow-up appointment from this hospitalization. I also recommend a follow-up by your primary care physician within the next week to ensure things are not getting worse after discharge. It was a pleasure taking care of you! Call if you have any questions or problems. You can reach a [facility] hospitalist on duty at [facility] 24 hours a day by calling [phone]. Take care of yourself. Rashmi Bob, DO [facility] Additional Copies To Salbador Mills DO [place] [facility]
== END 2016-11-28 15:30 | disposition home or self-care (01) | DRG 699 ==
LOC: C.4E 17:59 → OBSVTOIN 19:24 → UNDODISIN 11-25 15:00
PROVIDERS: ADMIT Internal Medicine; ATTEND Hospitalist
DX: N04.9 Nephrotic syndrome with unspecified morphologic changes (principal); I13.0 Hypertensive heart and chronic kidney disease with heart failure and stage 1 through stage 4 chronic kidney disease, or unspecified chronic kidney disease; I50.32 Chronic diastolic (congestive) heart failure; N18.4 Chronic kidney disease, stage 4 (severe); K21.9 Gastro-esophageal reflux disease without esophagitis; Z85.46 Personal history of malignant neoplasm of prostate; Z86.73 Personal history of transient ischemic attack (TIA), and cerebral infarction without residual deficits; E78.5 Hyperlipidemia, unspecified; J84.10 Pulmonary fibrosis, unspecified; Z88.8 Allergy status to other drugs, medicaments and biological substances; Z91.048 Other nonmedicinal substance allergy status; Z79.82 Long term (current) use of aspirin; Z79.899 Other long term (current) drug therapy; E87.6 Hypokalemia; I95.9 Hypotension, unspecified; R26.9 Unspecified abnormalities of gait and mobility; M51.36 Other intervertebral disc degeneration, lumbar region; I35.1 Nonrheumatic aortic (valve) insufficiency; W18.2XXA Fall in (into) shower or empty bathtub, initial encounter; Y93.E1 Activity, personal bathing and showering; Y92.121 Bathroom in nursing home as the place of occurrence of the external cause; M41.9 Scoliosis, unspecified